=== PATIENT | male | born 1955 | race Caucasian/White ===

== ENCOUNTER 2020-11-08 11:18 | Outpatient (REF) | payer MEDICARE, MEDICAID, SELFPAY ==
[2020-11-08 14:30] LABS: Alanine Aminotransferase 18 U/L (0-40); Albumin Level 4.2 g/dL (3.5-5.0); Alkaline Phosphatase 48 U/L (39-117); Anion Gap 11 (12-20); Aspartate Amino Transferase 16 U/L (5-37); Bilirubin Total 0.3 mg/dL (0.0-1.0); Blood Urea Nitrogen 23 mg/dL (9-16); Calcium 8.5 mg/dL (8.4-10.2); Carbon Dioxide 28 mmol/L (22-29); Chloride 107 mmol/L (96-108); Cholesterol 182 mg/dL; Estimated Glomerular Filt Rate 43; Glucose Fasting 122 mg/dL (60-99); HDL Cholesterol 56 mg/dL; LDL Cholesterol Calculated 111 mg/dl; Potassium 4.9 mmol/l (3.3-5.1); Sodium 141 mmol/L (135-145); Total Protein 6.3 g/dL (6.5-8.0); Triglycerides 78 mg/dL
[2020-11-08 14:54] LABS: Prostate Specific Antigen Scr 0.47 ng/mL (<0.05-4.0); TSH reflex Free T4 0.77 mIU/mL (0.32-4.0)
== END 2020-11-08 11:19 | disposition home or self-care (01) ==
LOC: HO.HMGCLDS 11:18
PROVIDERS: PCP Nurse Practitioner Family; Visit Provider Nurse Practitioner Family
DX: I10 Essential (primary) hypertension (principal); Z12.5 Encounter for screening for malignant neoplasm of prostate
CPT/HCPCS: 80053; 80061; 84153; 84443

== ENCOUNTER → 2020-11-14 15:23 | Outpatient (BNVA) | payer MEDICARE, MEDICAID, SELFPAY | PROVIDERS: PCP Nurse Practitioner Family; Visit Provider Nurse Practitioner Family | DX: Z13.89 Encounter for screening for other disorder (principal) | CPT/HCPCS: Q3014 ==

== ENCOUNTER 2020-11-18 10:14 | Outpatient (REF) | payer MEDICARE, MEDICAID, SELFPAY ==
[2020-11-18 11:37] LABS: Alanine Aminotransferase 16 U/L (0-40); Albumin Level 4.7 g/dL (3.5-5.0); Alkaline Phosphatase 53 U/L (39-117); Anion Gap 17 (12-20); Aspartate Amino Transferase 17 U/L (5-37); Bilirubin Total 0.7 mg/dL (0.0-1.0); Blood Urea Nitrogen 22 mg/dL (9-16); Calcium 9.6 mg/dL (8.4-10.2); Carbon Dioxide 26 mmol/L (22-29); Chloride 103 mmol/L (96-108); Estimated Glomerular Filt Rate 40; Glucose Random 124 mg/dL (60-115); Potassium 4.7 mmol/l (3.3-5.1); Sodium 141 mmol/L (135-145); Total Protein 7.2 g/dL (6.5-8.0)
== END 2020-11-18 10:15 | disposition home or self-care (01) ==
LOC: HO.HMGCLDS 10:14
PROVIDERS: PCP Nurse Practitioner Family; Visit Provider Nurse Practitioner Family
DX: R79.89 Other specified abnormal findings of blood chemistry (principal)
CPT/HCPCS: 36415; 80053

== ENCOUNTER 2020-11-22 11:41 | Outpatient (REF) | payer MEDICARE, MEDICAID, SELFPAY ==
[2020-11-22 14:51] LABS: Estimated Glomerular Filt Rate 46
== END 2020-11-22 11:42 | disposition home or self-care (01) ==
LOC: HO.HMGCLDS 11:41
PROVIDERS: PCP Nurse Practitioner Family; Visit Provider Nurse Practitioner Family
DX: R79.89 Other specified abnormal findings of blood chemistry (principal)
CPT/HCPCS: 36415; 82565

== ENCOUNTER 2020-12-23 14:47 | Outpatient (REF) | payer MEDICARE, MEDICAID, SELFPAY ==
--- NOTE | ~2020-12-23 | XR_ITS ---
EXAMINATION: XR RIBS, RIGHT CLINICAL INFORMATION: Localized swelling, mass or lump COMPARISON: Previous chest x-ray February 2016 TECHNIQUE: 3 views of the right ribs and one view of the chest were obtained. FINDINGS: Lungs are clear. No consolidation, pneumothorax, or pleural effusion. The cardiomediastinal silhouette and pulmonary vasculature are normal. No acute fracture or bone lesion is seen. There is evidence of old trauma to the right posterior 11th rib. XR/XR ribs RT min 3V w CXR1V IMPRESSION: Old trauma to the posterior right 11th rib. No evidence for acute disease in the chest or acute rib fracture seen.
[2020-12-23 16:55] LABS: Anion Gap 14 (12-20); Blood Urea Nitrogen 24 mg/dL (9-16); Carbon Dioxide 27 mmol/L (22-29); Chloride 105 mmol/L (96-108); Estimated Glomerular Filt Rate 33; Glucose Random 91 mg/dL (60-115); Sodium 141 mmol/L (135-145)
[2020-12-23 17:08] LABS: Creatinine Urine 123.19 mg/dL; Microalbumin Urine < 5.0 mg/L
[2020-12-24 08:15] LABS: Estimated Average Glucose 114 mg/dL; Hemoglobin A1c % 5.6 %
== END 2020-12-23 14:48 | disposition home or self-care (01) ==
LOC: HO.HMGCLDS 14:47
PROVIDERS: PCP Nurse Practitioner Family; Visit Provider Internal Medicine
DX: R22.2 Localized swelling, mass and lump, trunk (principal); R73.01 Impaired fasting glucose; R79.89 Other specified abnormal findings of blood chemistry
CPT/HCPCS: 36415; 71101; 80048; 82043; 83036

== ENCOUNTER 2021-01-02 14:14 | Outpatient (REF) | payer MEDICARE, MEDICAID, SELFPAY ==
--- NOTE | ~2021-01-02 | XR_ITS ---
EXAMINATION: XR WRIST, RIGHT CLINICAL INFORMATION: Pain right wrist COMPARISON: None TECHNIQUE: Right wrist is imaged in 3 views. FINDINGS: There is no fracture or dislocation or destructive process. The ulnar variance is neutral in the pronator quadratus fat. Appears normal. There is mild narrowing proximal radial carpal compartment along with chondrocalcinosis involving the triangular fibrocartilage with benign bulky calcification medial side measuring 3 x 5 mm. There are cystic changes in the distal ulnar without expansion or matrix mineralization, possibly geode or enchondroma. Cortex appears intact. There is no periostitis. There are prominent degenerative changes risk of a joint with marked narrowing and subchondral sclerosis and spurring. No visible erosive change. There are mild degenerative changes first carpometacarpal joint. The MCP joints show no narrowing or erosive change. There is some mild spurring medial base second and third finger proximal phalanx and spurring base third and fourth metacarpal heads. XR/XR wrist RT min 3V IMPRESSION: 1. Narrowing radial carpal compartment with chondrocalcinosis triangular fibrocartilage and prominent degenerative arthropathy triscaphe joint. 2. Cystic changes distal ulnar without expansion or matrix mineralization, possibly geode or enchondroma. 3. No fracture or dislocation.
== END 2021-01-02 14:15 | disposition home or self-care (01) ==
LOC: HO.HMGCX 14:14
PROVIDERS: PCP Nurse Practitioner Family; Visit Provider Hospitalist
DX: M25.531 Pain in right wrist (principal)
CPT/HCPCS: 73110

== ENCOUNTER → 2021-03-02 13:18 | Outpatient (BNVA) | payer OTHER, SELFPAY | PROVIDERS: PCP Nurse Practitioner Family; Visit Provider Nurse Practitioner Family | DX: Z12.11 Encounter for screening for malignant neoplasm of colon (principal) | CPT/HCPCS: Q3014 ==

== ENCOUNTER 2021-06-21 13:21 | Outpatient (REF) | payer OTHER, SELFPAY ==
[2021-06-21 14:37] LABS: Hematocrit 36.7 % (42-52); Mean Corpuscular HGB Conc 32.7 g/dl (31.0-36.0); Mean Corpuscular Hemoglobin 31.8 pg (27.0-33.0); Mean Corpuscular Volume 97.3 fL (80-98); Mean Platelet Volume 10.6 fL (9.4-12.4); Platelet Count 185 X10*3/uL (160-400); Red Blood Count 3.77 X10*6/uL (4.60-5.80); Red Cell Distribution Width 13.5 % (11.0-16.0); White Blood Count 5.8 X10*3/uL (4.8-10.8)
[2021-06-21 15:05] LABS: Alanine Aminotransferase 48 U/L (0-40); Albumin Level 4.2 g/dL (3.5-5.0); Alkaline Phosphatase 60 U/L (39-117); Anion Gap 12 (12-20); Aspartate Amino Transferase 41 U/L (5-37); Bilirubin Total 0.3 mg/dL (0.0-1.0); Blood Urea Nitrogen 34 mg/dL (9-16); Calcium 9.1 mg/dL (8.4-10.2); Carbon Dioxide 23 mmol/L (22-29); Chloride 111 mmol/L (96-108); Estimated Glomerular Filt Rate 30; Glucose Random 105 mg/dL (60-115); Potassium 5.1 mmol/L (3.3-5.1); Sodium 141 mmol/L (135-145); Total Protein 6.3 g/dL (6.5-8.0)
== END 2021-06-21 13:22 | disposition home or self-care (01) ==
LOC: HO.LAB 13:21
PROVIDERS: PCP Nurse Practitioner Family; Visit Provider Nurse Practitioner Family
DX: Z12.11 Encounter for screening for malignant neoplasm of colon (principal); F17.210 Nicotine dependence, cigarettes, uncomplicated
CPT/HCPCS: 36415; 80053; 85027; 99212

== ENCOUNTER 2021-08-17 10:47 | Outpatient (REF) | payer OTHER, SELFPAY ==
[2021-08-17 14:16] LABS: Alanine Aminotransferase 30 U/L (0-40); Albumin Level 4.3 g/dL (3.5-5.0); Alkaline Phosphatase 72 U/L (39-117); Anion Gap 13 (12-20); Aspartate Amino Transferase 21 U/L (5-37); Bilirubin Total 0.3 mg/dL (0.0-1.0); Blood Urea Nitrogen 17 mg/dL (9-16); Calcium 9.3 mg/dL (8.4-10.2); Carbon Dioxide 25 mmol/L (22-29); Chloride 106 mmol/L (96-108); Cholesterol 177 mg/dL; Estimated Glomerular Filt Rate 39; Glucose Fasting 119 mg/dL (60-99); HDL Cholesterol 75 mg/dL; LDL Cholesterol Calculated 84 mg/dl; Potassium 4.4 mmol/L (3.3-5.1); Sodium 140 mmol/L (135-145); Total Protein 6.5 g/dL (6.5-8.0); Triglycerides 94 mg/dL
[2021-08-17 14:20] LABS: Appearance Urine CLEAR; Color Urine YELLOW; Glucose Urine UA NEG (NEG); Leukocyte Esterase Urine NEG (NEG); Nitrite Urine NEG (NEG); Specific Gravity - Urine >= 1.030 (1.005-1.025); Urine Blood NEG (NEG); Urine Ketones NEG (NEG); Urine Protein NEG (NEG-TRACE)
[2021-08-17 14:37] LABS: Prostate Specific Antigen Scr 0.69 ng/mL (<0.05-4.0); TSH reflex Free T4 1.06 uIU/mL (0.32-4.0)
== END 2021-08-17 10:48 | disposition home or self-care (01) ==
LOC: HO.HMGCLDS 10:47
PROVIDERS: PCP Nurse Practitioner Family; Visit Provider Nurse Practitioner Family
DX: Z12.5 Encounter for screening for malignant neoplasm of prostate (principal); R79.89 Other specified abnormal findings of blood chemistry; I10 Essential (primary) hypertension
CPT/HCPCS: 36415; 80053; 80061; 81003; 84153; 84443

== ENCOUNTER 2021-08-24 10:25 | Day surgery (SDC) | payer OTHER, SELFPAY ==
[2021-08-17 11:33] VITALS: BMI 24.3
--- NOTE | 2021-08-23 09:06 | HO.ANESPROP2 ---
Documented by User: Ledy Ying NP 08/23/21 09:07 HPI - Anesthesia Eval Consult details Narrative: 65yo M for Colonoscopy PMFSH Active Problems Active Problems: All Active Problems (Updated 08/17/21 @ 11:41 by Rosemary Monteiro RN) Screening for colon cancer (Acute) Penile lesion (Acute) Elevated serum creatinine (Acute) Lump in chest (Acute) Elevated fasting blood sugar (Acute) Right wrist pain (Acute) Elevated serum creatinine (Acute) Screening PSA (prostate specific antigen) (Acute) HTN (hypertension) (Acute) Past Medical History Medical History CKD (chronic kidney disease) COVID-19 vaccine series completed HTN (hypertension) Hx MRSA infection Primary osteoarthritis of both hips Family History Family History Father Brain tumor Mother HTN (hypertension) COPD (chronic obstructive pulmonary disease) Diabetes mellitus Maternal Grandfather No problems noted. Maternal Grandmother No problems noted. Paternal Grandfather No problems noted. Paternal Grandmother No problems noted. Surgical History Surgical History History of back surgery History of back surgery History of back surgery Social History Social History Household Members Other:: sister Housing: House Are you a primary residential child care counselor to a significant other at home: No Do you presently have visiting nurse or other home services: No Alcohol intake: current Alcohol intake frequency: a few times a week Patient Tobacco Use Status: Current everyday Tobacco user Tobacco use type: Cigarette Cigarettes Per Day: 3 Years Smoked: 15 e-Cigarette/Vaping Use: Never Used Second Hand Smoke Exposure: No Use of substances other than those prescribed or required for medical reasons: Yes Substance Use Type Other:: 3-4 times/week Are you DNR?: No Advance Directives Information Provided: Yes (informational brochure mailed) Advance Directives on File: No Recently lost weight without trying: No Eating poorly because of decreased appetite: No Nutrition Risks: No Nutritional Risk Poor oral hygiene: No (has had dental extractions) Current occupational status: retired Meds Allergies Allergy/AdvReac Type Severity Reaction Status Date / Time tizanidine AdvReac Unknown Nightmares Verified 08/02/21 17:06 Exam Exam Date and Time: August 23, [id number] Height,Weight and Vital Signs: Height 5 ft 10 in Weight 77.111 kg Pertinent Lab Results Pertinent Lab Results: Laboratory Tests 06/21/21 08/17/21 14:20 10:52 WBC 5.8 Hgb 12.0 L Hct 36.7 L Plt Count 185 Sodium 140 Potassium 4.4 Chloride 106 Carbon Dioxide 25 BUN 17 H Creatinine 1.78 H Assessment and Plan Assessment Anesthesia Assessment: Chart Reviewed Documented by User: Kayla Huerta MD 08/24/21 10:46 PMFSH Past Medical History Medical History CKD (chronic kidney disease) COVID-19 vaccine series completed HTN (hypertension) Hx MRSA infection Primary osteoarthritis of both hips Functional capacity: independent ambulation Family History Family History Father Brain tumor Mother HTN (hypertension) COPD (chronic obstructive pulmonary disease) Diabetes mellitus Maternal Grandfather No problems noted. Maternal Grandmother No problems noted. Paternal Grandfather No problems noted. Paternal Grandmother No problems noted. Family history of problems with anesthesia: No Surgical History Surgical History History of back surgery History of back surgery History of back surgery History of Problems with Anesthesia: No Social History Social History Household Members Other:: sister Housing: House Are you a primary residential child care counselor to a significant other at home: No Do you presently have visiting nurse or other home services: No Alcohol intake: current Alcohol intake frequency: a few times a week Patient Tobacco Use Status: Current everyday Tobacco user Tobacco use type: Cigarette Cigarettes Per Day: 3 Years Smoked: 15 e-Cigarette/Vaping Use: Never Used Second Hand Smoke Exposure: No Use of substances other than those prescribed or required for medical reasons: Yes Substance Use Type Other:: 3-4 times/week Are you DNR?: No Advance Directives Information Provided: Yes (informational brochure mailed) Advance Directives on File: No Recently lost weight without trying: No Eating poorly because of decreased appetite: No Nutrition Risks: No Nutritional Risk Poor oral hygiene: No (has had dental extractions) Current occupational status: retired Meds Allergies Allergy/AdvReac Type Severity Reaction Status Date / Time tizanidine AdvReac Unknown Nightmares Verified 08/02/21 17:06 Exam Airway Mallampati Class: II TM Dist: >3cm Denture: Upper and Lower Heart: RRR Lungs: CTA Assessment and Plan Final Anesthetic Review Family History of Problems with Anesthesia: No History of Problems with Anesthesia: No
[2021-08-24 10:33] VITALS: BP 176/74; PULSE 86; RESP 16; TEMP 36.4; O2SAT 95
[2021-08-24] MEDS: Lactated Ringers 1,000 ML 100 ML IVCONT (10:40)
--- NOTE | 2021-08-24 10:45 | MHC.SHP ---
Pre-Procedural Eval Section A Date of Service: 08/24/21 Section B Chief Complaint: Screening Relevant Family History (Specify if Yes): No Relevant Social History: Tobacco Use Present Medications: see Short Stay Collaborative assessment Medical History: Significant History (CKD (chronic kidney disease) COVID-19 vaccine series completed HTN (hypertension) Hx MRSA infection Primary osteoarthritis of both hips) History of Previous Operations: Relevant previous surgery/procedure and date(s) (History of back surgery) Allergies: Allergies Allergy/AdvReac Type Severity Reaction Status Date / Time tizanidine AdvReac Unknown Nightmares Verified 08/02/21 17:06 Review of Systems Sugical H&P ROS: Negative: Constitution, Cardiovascular, Respiratory, Neurological, Psychiatric, Hem-Onc, Allergic/Immunologic, Gastrointestinal, Genitourinary, Musculoskeletal, Integumentary, Endocrine and Eyes/Ears/Nose/Throat Exam Surgical H&P Exam: Normal: HEENT, Normal: Heart, Normal: Lungs, Normal: Extremities, Normal: Abdomen, Normal: Skin and Normal: Neurological Plan Diagnosis/Plan: Unchanged I have reviewed the history and physical and performed a pertinent physical examination on my patient. No changes have occurred unless specified.
--- NOTE | 2021-08-24 11:32 | PM.OP ---
Brief Operative Note Date of Service: 08/24/21 Pre-op diagnosis: colon screening Post-op diagnosis: same Procedure: see op note Surgeon: Bello Hernández MD Anesthesia: MAC Was an Building And Construction Manager used for this Procedure?: No Estimated blood loss (mL): 0 Condition: stable Disposition: PACU
--- NOTE | 2021-08-24 11:32 | W.PM.OPN ---
Operative Note Operative Note Date of Service: 08/24/21 Narrative: Operative Information Procedure Description: Colonoscopy COLONOSCOPY Instrument: Olympus variable stiffness pediatric scope 190L Colonoscopy Monitoring: Vital signs and clinical assessment, continuous EKG monitoring, Pulse oximetry, Carbon Dioxide monitoring and blood pressure monitoring were done throughout the procedure. Colon withdrawal time was 13 minutes. Procedure: The patient was placed in the left lateral decubitis position and pre-procedure medications were administered. After a digital rectal examination of the ano-rectum, the video colonoscope was inserted into the rectum and advanced through the colon to the cecum/TI. The colonoscope was slowly withdrawn in a retrograde panoramic fashion and the colon mucosa was carefully examined including a retroflexed view of the rectum. Findings and interventions are described below. Procedure Difficulty: easy Findings: Terminal Ileum-normal Cecum: 8-9 mm sessile polyp removed with cold snare Ascending Colon: 8-9 mm sessile polyp removed with cold snare Transverse Colon -normal Descending Colon:normal Sigmoid Colon: normal Rectum: Retroflexion with small internal hemorrhoids, grade I Anorectum - normal Colon preparation: Fombell Bowel Preparation Scale Right colon; 1 Transverse colon: 1 Left colon; 1 (0 = Unprepared colon segment with mucosa not seen due to solid stool that cannot be cleared. 1 = Portion of mucosa of the colon segment seen, but other areas of the colon segment not well seen due to staining, residual stool and/or opaque liquid. 2 = Minor amount of residual staining, small fragments of stool and/or opaque liquid, but mucosa of colon segment seen well. 3 = Entire mucosa of colon segment seen well with no residual staining, small fragments of stool or opaque liquid) Impression and Post Procedure Diagnosis: poor prep internal hemorrhoids polyps Plan: High fiber diet leaflet Avoid straining at stool, epsom salts and sitz bath, anusol supps or cream Repeat Colonoscopy in 6-12 months and review prep instructions again Above findings were reviewed with the patient and relevant handouts were provided if indicated.
[2021-08-24 11:39] VITALS: BP 128/73; PULSE 75; RESP 16; TEMP 37.4; O2SAT 100
--- NOTE | 2021-08-24 11:44 | HO.POSTANES ---
Post Anesthesia Evaluation Post Anesthesia Evaluation Vital Signs: Vital Signs Temp Pulse Resp BP Pulse Ox 08/24/21 11:39 99.4 F 75 16 128/73 100 08/24/21 10:33 97.5 F 86 16 176/74 H 95 Anesthesia: Monitored Mental Status: Awake Nausea/Vomiting: None Hydration: Adequate Anesthesia-Related Issues: No Anes. Related Issues
[2021-08-24 11:54] VITALS: BP 142/72; PULSE 69; RESP 20; TEMP 37.5; O2SAT 97
== END 2021-08-24 13:03 | disposition home or self-care (01) ==
PROVIDERS: PCP Nurse Practitioner Family; Visit Provider Internal Medicine Gastroenterology
PROC: 0DJD8ZZ Inspection of Lower Intestinal Tract, Via Natural or Artificial Opening Endoscopic (ICD-10-PCS; CPT 45378; principal; 2021-08-24 12:30)
DX: Z12.11 Encounter for screening for malignant neoplasm of colon (principal); D12.0 Benign neoplasm of cecum; D12.2 Benign neoplasm of ascending colon; K64.0 First degree hemorrhoids; I12.9 Hypertensive chronic kidney disease with stage 1 through stage 4 chronic kidney disease, or unspecified chronic kidney disease; N18.9 Chronic kidney disease, unspecified; F17.210 Nicotine dependence, cigarettes, uncomplicated; Z79.899 Other long term (current) drug therapy; Z86.14 Personal history of Methicillin resistant Staphylococcus aureus infection; Z88.8 Allergy status to other drugs, medicaments and biological substances
CPT/HCPCS: 45385; 88305

== ENCOUNTER 2023-07-26 19:04 | Emergency (ER) | payer MEDICARE, SELFPAY ==
[2023-07-26] VITALS (7 sets, daily range): BP systolic 110–144; BP diastolic 53–79; PULSE 65–85; RESP 15–16; TEMP 36.5–36.9; O2SAT 92–95; BMI 24.1
--- NOTE | 2023-07-26 | ECG_ITS ---
Test Reason : DIZZINESS Blood Pressure : / mmHG Vent. Rate : 078 BPM Atrial Rate : 078 BPM P-R Int : 158 ms QRS Dur : 082 ms QT Int : 388 ms P-R-T Axes : 066 024 047 degrees QTc Int : 442 ms Normal sinus rhythm Possible Anteroseptal infarct , age undetermined Abnormal ECG When compared with ECG of 22-FEB-2016 08:18, Premature ventricular complexes are no longer Present Vent. rate has decreased BY 41 BPM Borderline criteria for Anteroseptal infarct are now Present Referred By: Generic ED Physician Electronically Signed By:BRAYDON SHARMA
--- NOTE | ~2023-07-26 | CT_ITS ---
EXAMINATION: CT HEAD WITHOUT CONTRAST CLINICAL INFORMATION: Mental status changes. COMPARISON: CT head from 02/22/2016. TECHNIQUE: Contiguous axial imaging was performed from the skull base to vertex without intravenous administration of contrast. This CT examination was performed using dose optimization techniques as appropriate, variously including the following: *Automated exposure control. *Adjustment of mA and/or kV according to patient size (this includes techniques or standardized protocols for targeted exams where dose is matched to indication/reason for exam; i.e. extremities or head). *Use of iterative reconstruction technique. DLP: 694 mGy-cm FINDINGS: There is no evidence of acute intracranial hemorrhage or edematous territorial infarction. Castro-white matter differentiation is preserved. A few foci of hypoattenuation in the periventricular and deep white matter are consistent with mild microangiopathy. The ventricles are normal in morphology and size. No evidence for obstructive hydrocephalus. No abnormal mass effect or midline shift. No extra-axial fluid collections. Calcific atherosclerotic disease of the intracranial internal carotid arteries. No hyperdense vessel sign. No acute soft tissue or osseous abnormalities. Mild mucosal thickening of the paranasal sinuses. The mastoid air cells and middle ear cavities are clear. Extensive odontogenic enamel erosions and periapical lucencies. CT/CT head/brain wo IV con IMPRESSION: 1. No evidence of acute intracranial hemorrhage or edematous territorial infarction. 2. Mild underlying microangiopathy. 3. Extensive odontogenic disease.
--- NOTE | ~2023-07-26 | XR_ITS ---
EXAMINATION: XR CHEST CLINICAL INFORMATION: Cough. COMPARISON: Chest radiographs dated 12/23/2020 and 02/22/2016. TECHNIQUE: Frontal and lateral views of the chest were obtained. FINDINGS: The heart, great vessels, pulmonary vasculature and mediastinum are normal. The lungs show no focal infiltrate, effusion or pneumothorax. There is no acute osseous abnormality. XR/XR chest 2V IMPRESSION: No active cardiopulmonary disease.
--- NOTE | 2023-07-26 19:52 | ED_ITS ---
HPI - Altered Mental Status General Chief Complaint: Altered Mental Status Stated Complaint: AMS Time Seen by Provider: 07/26/23 19:50 Source: patient, family (sister; at bedside) and RN notes reviewed Limitations: altered mental status History of Present Illness HPI narrative: 67-year-old male who has a history of hypertension currently on lisinopril however non compliant, history of CKD, presents by EMS for mental status changes. Some history is obtained from the patient, however additional information is provided by the sister was at the bedside. Patient states today that while he was fishing, he fell lightheaded and dizzy, like he was spinning. There was no syncope. Patient reports that he felt confused and was diaphoretic. According to the sister, she reports that the patient has been having several episodes of this over the past several days. She has seen him periodically over the past 3-4 days and he has experienced similar symptoms. Last known well time was approximately 4 days ago. Onset of symptoms was 3-4 days ago. There was no syncope. He denies any associated chest pain or shortness of breath. Sister also reports that he had been confused, and not acting appropriately. Patient resisted denying trauma. Currently the patient has no physical complaints. He denies any fevers chills nausea vomiting. No sick contacts. Related Data Previous Rx's Medication Instructions Recorded amlodipine 5 mg tablet 5 mg PO DAILY #90 tabs 07/05/22 lisinopril 20 mg tablet 20 mg PO DAILY 90 days #90 tabs 03/07/23 Allergies Allergy/AdvReac Type Severity Reaction Status Date / Time tizanidine AdvReac Unknown Nightmares Verified 07/26/23 19:31 Review of Systems 2 Review of Systems: Constitutional: No Weight loss, No Fever, No Chills, No Night Sweats, No Fatigue, No Malaise ENT/Mouth: No Ear Pain, No Nasal Congestion, No sore throat, No Rhinorrhea, No Swallowing Difficulty Eyes: No Eye Pain, No Swelling, No Redness, No Foreign Body, No Discharge, No Vision Changes Cardiovascular: No Chest Pain, No SOB, No Edema, No Palpitations Respiratory: No Cough, No Sputum, No Dyspnea Gastrointestinal: No Nausea, No Vomiting, No Diarrhea, No Constipation, No Abdominal pain Genitourinary: No irregular bleeding, No Dysuria, No Hematuria, No Flank Pain Musculoskeletal: No joint pain, No Myalgias, No Joint Swelling Skin: No Skin Lesions, No rash Neuro: + Weakness, No Numbness, No Paresthesias, No Loss of Consciousness, + Dizziness, No Headache, + mental status changes [facility] Past Medical History Attestation statement: The following information was validated with the patient. Medical History CKD (chronic kidney disease) COVID-19 vaccine series completed HTN (hypertension) Hx MRSA infection Primary osteoarthritis of both hips Surgical History History of back surgery History of back surgery History of back surgery Family History Family History Father Brain tumor Mother HTN (hypertension) COPD (chronic obstructive pulmonary disease) Diabetes mellitus Maternal Grandfather No problems noted. Maternal Grandmother No problems noted. Paternal Grandfather No problems noted. Paternal Grandmother No problems noted. Social History Social History Household Members Other:: sister Housing: House Are you a primary managed care coordinator to a significant other at home: No Do you presently have visiting nurse or other home services: No Alcohol intake: current Alcohol intake frequency: 3 or more drinks per day Alcohol type: beer Patient Tobacco Use Status: Current everyday Tobacco user Tobacco use type: Cigarette Cigarettes Per Day: 3 Years Smoked: 15 Smoked in Last 30 Days: Yes e-Cigarette/Vaping Use: Never Used Second Hand Smoke Exposure: No Use of substances other than those prescribed or required for medical reasons: Yes Substance Use Type: Marijuana Advance Directives: No Advance Directives Information Provided: No Current occupational status: retired Physical Exam ED Vital Signs: Vital Signs - 24 hr 07/26/23 19:38 07/26/23 20:36 07/26/23 20:38 Temperature 98 F 97.7 F Pulse Rate 85 70 65 Respiratory Rate 15 16 Blood Pressure 129/69 110/70 111/63 Pulse Oximetry 94 92 Oxygen Delivery Method Room Air Room Air 07/26/23 20:39 07/26/23 20:42 07/26/23 22:12 Temperature 98.5 F Pulse Rate 71 82 70 Respiratory Rate 16 Blood Pressure 115/55 L 111/53 L 144/67 H Pulse Oximetry 95 Oxygen Delivery Method Room Air BMI result Body Mass Index 24.1 Const General: cooperative and no acute distress Orientation/consciousness: oriented to person, oriented to place and No oriented to time Limitations: altered mental status HENMT Other: Pupils are equal round and reactive to light. Extraocular movements are intact. No visual field deficits. No nystagmus. Resp Effort & Inspection: normal respiratory effort, able to speak in complete sentences, no audible wheezes and no cough Auscultation: clear to auscultation bilaterally Cardio Jugular venous distension: no JVD Rate: regular rate Rhythm: regular rhythm GI Palpation (GI): Soft to palpation and nontender Neuro General: oriented to person, oriented to place and No oriented to time Cranial nerves: Yes CN's II-XII intact bilaterally Psych Attitude: cooperative NIH Stroke Scale Internal: Initial- Upon Arrival Time: 20:10 Level of Consciousness: Alert Level of Consciousness Questions: Answers both questions correctly Level of Consciousness Commands: Performs both tasks correctly Best Gaze: Normal Visual: No visual loss Facial Palsy: Normal Motor Arm (Right): No drift Motor Arm (Left): No drift Motor Leg (Right): No drift Motor Leg (Left): No drift Limb Ataxia: Absent Sensory: Normal Best Language: No aphasia Dysarthia: Normal Extinction and Inattention: No abnormality Score: 0 Course Course Course Narrative: 8:05 p.m., July 26, 2023 no evidence of SIRS, sepsis at this time. No obvious infection. Shortly after stepping out of the room, patient's sister reports while attempting to help the patient find his cell phone in his pocket, she found a small piece of carpet the plastic wrap with a small amount of white substance within it. Patient also had a senior oracle developer and a piece of a plastic straw. This is concerning for substance use and will further evaluate. Reevaluation(s) Reevaluation #1: Reassessment the patient at this time, he is awake alert and CAMPOS x3. Reviewed all labs and imaging with the patient and his sister. Patient confirms that he does smoke marijuana daily and admits to spending time with other individuals that he does not normally hang out with. In addition he thinks some of the marijuana he has been getting from other individuals as well. I had extensive conversation with the patient to discontinue this use. He is in agreement with this. The patient has been ambulatory in the emergency department. He has steady gait there is no orthostasis. Denies any headache or vision changes. Patient feels comfortable with discharge plan home. He denies any underlying dependence is refusing detox. The patient's sister whom he lives with, feels comfortable taking him home and will continue to monitor. Time: 23:08 Medications Administered Discontinued Medications Generic Name Dose Route Start Last Admin Trade Name Emily PRN Reason Stop Dose Admin Sodium Chloride 500 mls @ 500 mls/hr 07/26/23 20:15 07/26/23 22:02 Ns IV 07/26/23 21:14 Infused .Q1H MOISES Infusion Medical Decision Making Medical Decision Making [facility] Narrative: 67-year-old male with history of hypertension and CKD presents for mental status changes, associated diaphoresis. Patient currently denies any physical complaints. Patient's history and symptoms were additional workup, including CVA, TIA verses cardiac, toxic ingestion, or other metabolic abnormality. No focal deficits on exam. Check labs, CT of the brain, UA. ABCD<sup>2</sup> Score for TIA from [email or web address] on 07/26/2023 All calculations should be rechecked by clinician prior to use RESULT SUMMARY: 3 points Per the validation study, 0-3 points: Low Risk 2-Day Stroke Risk: 1.0% 7-Day Stroke Risk: 1.2% 90-Day Stroke Risk: 3.1% INPUTS: Age >=60 years ?> 1 = Yes BP >=140/90 mmHg ?> 0 = No Clinical features of the TIA ?> 0 = Other symptoms Duration of symptoms ?> 2 = >=60 minutes History of diabetes ?> 0 = No Differential Diagnosis Differential Diagnoses: The differential diagnosis associated with the presentation includes CVA TIA Metabolic abnormality Toxic ingestion Sepsis, no evidence of infection at this time, no SIRS UTI Admission/Observation Consideration of admission/observation: Escalation of care including admission/observation considered Consideration for possible admission however since the patient has improved, no acute process on labs and they were all essentially at baseline, and no acute findings on imaging, and no focal deficit, patient will be discharged home. Discussed with Dr. Waterman who agrees with plan. Lab Data [facility] Lab Attestation statement: I reviewed the patient's lab results. 07/26/23 22:00 07/26/23 19:54 Labs: Lab Results 07/26/23 07/26/23 07/26/23 Range/Units 19:54 21:03 22:00 WBC 6.1 (4.8-10.8) X10*3/uL RBC 4.28 L (4.60-5.80) X10*6/uL Hgb 13.5 L (14.0-18.0) g/dl Hct 40.5 L (42.0-52.0) % MCV 94.6 (80.0-98.0) fL MCH 31.5 (27.0-33.0) pg MCHC 33.3 (31.0-36.0) g/dl RDW 13.4 (11.0-16.0) % Plt Count 149 L (160-400) X10*3/uL MPV 10.7 (9.4-12.4) fL Immature Gran % (Auto) 0.3 (0.0-0.4) % Neut % (Auto) 59.4 (45-73) % Lymph % (Auto) 25.7 (20-40) % [place] % (Auto) 10.5 (2-11) % Eos % (Auto) 3.4 (0-4) % Baso % (Auto) 0.7 (0-2) % Lymph # (Auto) 1.6 (1.2-4.9) X10*3/uL [place] # (Auto) 0.6 (0.1-1.2) X10*3/uL Eos # (Auto) 0.2 (0.0-0.4) X10*3/uL Baso # (Auto) 0.0 (0.0-0.2) X10*3/uL Abs Immat Gran (auto) 0.02 (0.00-0.03) X10*3/uL Absolute Neuts (auto) 3.6 (2.0-8.3) x10*3/uL Absolute Nucleated RBC 0.000 (0.0-0.012) X10*3/uL Nucleated RBC % (auto) 0.0 (0.0-0.2) /100WBC Sodium 141 (135-145) mmol/L Potassium 4.7 (3.3-5.1) mmol/L Chloride 106 (96-108) mmol/L Carbon Dioxide 27 (22-29) mmol/L Anion Gap 13 (12-20) BUN 14 (9-16) mg/dL Creatinine 2.15 H (0.5-1.4) mg/dL Estim Creat Clear Calc 35.3 Estimated GFR 31 Random Glucose 110 (60-115) mg/dL Calcium 9.6 (8.4-10.2) mg/dL Total Bilirubin 0.6 (0.0-1.0) mg/dL AST 33 (5-37) U/L ALT 44 H (0-40) U/L Alkaline Phosphatase 131 H (39-117) U/L Ammonia 24 (13-55) umol/L Total Creatine Kinase 157 (38-174) U/L Troponin I High Sens 3.9 (<3.5-35.0) ng/L Total Protein 6.7 (6.5-8.0) g/dL Albumin 4.1 (3.5-5.0) g/dL Urine Opiates Screen (Not Detect) Urine Fentanyl Screen (Not Detect) Ur Barbiturates Screen (Not Detect) Ur Phencyclidine Scrn (Not Detect) Ur Amphetamines Screen (Not Detect) U Benzodiazepines Scrn (Not Detect) Urine Cocaine Screen (Not Detect) U Marijuana (THC) Screen (Not Detect) Ethyl Alcohol < 10 mg/dL 07/26/23 Range/Units 22:15 WBC (4.8-10.8) X10*3/uL RBC (4.60-5.80) X10*6/uL Hgb (14.0-18.0) g/dl Hct (42.0-52.0) % MCV (80.0-98.0) fL MCH (27.0-33.0) pg MCHC (31.0-36.0) g/dl RDW (11.0-16.0) % Plt Count (160-400) X10*3/uL MPV (9.4-12.4) fL Immature Gran % (Auto) (0.0-0.4) % Neut % (Auto) (45-73) % Lymph % (Auto) (20-40) % [place] % (Auto) (2-11) % Eos % (Auto) (0-4) % Baso % (Auto) (0-2) % Lymph # (Auto) (1.2-4.9) X10*3/uL [place] # (Auto) (0.1-1.2) X10*3/uL Eos # (Auto) (0.0-0.4) X10*3/uL Baso # (Auto) (0.0-0.2) X10*3/uL Abs Immat Gran (auto) (0.00-0.03) X10*3/uL Absolute Neuts (auto) (2.0-8.3) x10*3/uL Absolute Nucleated RBC (0.0-0.012) X10*3/uL Nucleated RBC % (auto) (0.0-0.2) /100WBC Sodium (135-145) mmol/L Potassium (3.3-5.1) mmol/L Chloride (96-108) mmol/L Carbon Dioxide (22-29) mmol/L Anion Gap (12-20) BUN (9-16) mg/dL Creatinine (0.5-1.4) mg/dL Estim Creat Clear Calc Estimated GFR Random Glucose (60-115) mg/dL Calcium (8.4-10.2) mg/dL Total Bilirubin (0.0-1.0) mg/dL AST (5-37) U/L ALT (0-40) U/L Alkaline Phosphatase (39-117) U/L Ammonia (13-55) umol/L Total Creatine Kinase (38-174) U/L Troponin I High Sens (<3.5-35.0) ng/L Total Protein (6.5-8.0) g/dL Albumin (3.5-5.0) g/dL Urine Opiates Screen POSITIVE H (Not Detect) Urine Fentanyl Screen POSITIVE H (Not Detect) Ur Barbiturates Screen Not Detected (Not Detect) Ur Phencyclidine Scrn Not Detected (Not Detect) Ur Amphetamines Screen Not Detected (Not Detect) U Benzodiazepines Scrn POSITIVE H (Not Detect) Urine Cocaine Screen POSITIVE H (Not Detect) U Marijuana (THC) Screen POSITIVE H (Not Detect) Ethyl Alcohol mg/dL Independent Interpretation I performed an independent interpretation of an: EKG Interpretation: Sinus rhythm at 78 beats per minute, no acute ischemic changes. Radiology Impression Discussion of test interpretation with radiology: I have reviewed the radiologist's reading. Radiologist Impression: [address] [address] [address] Scan Report Signed Patient: Terell Medley MR#: [id number] : 1955 Acct:[id number] Age/Sex: 67 / M ADM Date: 07/26/23 Loc: HO.ED Attending Dr: Ordering Physician: Gucci Toney Date of Service: 07/26/23 Procedure(s): CT head/brain wo IV con Accession Number(s): [id number] cc: Syd Stevens FINE DINING SERVER-BC; Gucci Toney~ EXAMINATION: CT HEAD WITHOUT CONTRAST CLINICAL INFORMATION: Mental status changes. COMPARISON: CT head from 02/22/2016. TECHNIQUE: Contiguous axial imaging was performed from the skull base to vertex without intravenous administration of contrast. This CT examination was performed using dose optimization techniques as appropriate, variously including the following: *Automated exposure control. *Adjustment of mA and/or kV according to patient size (this includes techniques or standardized protocols for targeted exams where dose is matched to indication/reason for exam; i.e. extremities or head). *Use of iterative reconstruction technique. DLP: 694 mGy-cm FINDINGS: There is no evidence of acute intracranial hemorrhage or edematous territorial infarction. Castro-white matter differentiation is preserved. A few foci of hypoattenuation in the periventricular and deep white matter are consistent with mild microangiopathy. The ventricles are normal in morphology and size. No evidence for obstructive hydrocephalus. No abnormal mass effect or midline shift. No extra-axial fluid collections. Calcific atherosclerotic disease of the intracranial internal carotid arteries. No hyperdense vessel sign. No acute soft tissue or osseous abnormalities. Mild mucosal thickening of the paranasal sinuses. The mastoid air cells and middle ear cavities are clear. Extensive odontogenic enamel erosions and periapical lucencies. CT/CT head/brain wo IV con IMPRESSION: 1. No evidence of acute intracranial hemorrhage or edematous territorial infarction. 2. Mild underlying microangiopathy. 3. Extensive odontogenic disease. Dictated By: Kodi Owens DO Signed By: <Electronically signed by Kodi Owens DO in OV> 07/26/230 DD/ 53 TD/TT: Egg Processing Supervisor: KALI Independent Historian Clinical information obtained from an independent historian. History obtained from or confirmed by: Other (Sister) External Record Review External record reviewed: Outpatient record Chronic Conditions Patient?s care impacted by: Hypertension Discharge Plan Discharge Clinical Impression: Acute alteration in mental status, Polysubstance abuse Patient Disposition: Home, Self-Care Instructions: Polysubstance Abuse (ED) Additional Instructions: Your drug screening test today showed multiple substances in your system. These are likely to have caused your symptoms today. Recommend avoiding all drug use. Follow-up with your primary care provider. Return to the emergency department for further evaluation or if you have any other concerns. Prescriptions: No Action amlodipine 5 mg tablet 5 mg PO DAILY Qty: 90 0RF lisinopril 20 mg tablet 20 mg PO DAILY 90 Days Qty: 90 0RF Interventions: ED Discharge Assessment Last Done: 07/26/23 23:47 Discharge Date/Time: 07/26/23 23:49
[2023-07-26 20:13] LABS: Alanine Aminotransferase 44 U/L (0-40); Albumin Level 4.1 g/dL (3.5-5.0); Alkaline Phosphatase 131 U/L (39-117); Anion Gap 13 (12-20); Aspartate Amino Transferase 33 U/L (5-37); Bilirubin Total 0.6 mg/dL (0.0-1.0); Blood Urea Nitrogen 14 mg/dL (9-16); Calcium 9.6 mg/dL (8.4-10.2); Carbon Dioxide 27 mmol/L (22-29); Chloride 106 mmol/L (96-108); Creatinine Clr Calc Pharmacy 35.3; Estimated Glomerular Filt Rate 31; Glucose Random 110 mg/dL (60-115); Potassium 4.7 mmol/L (3.3-5.1); Sodium 141 mmol/L (135-145); Total Protein 6.7 g/dL (6.5-8.0)
[2023-07-26 20:19] LABS: Troponin-I High Sensitivity 3.9 ng/L (<3.5-35.0)
[2023-07-26] MEDS: 0.9 % Sodium Chloride 500 ML IV (20:29)
[2023-07-26 20:35] LABS: Ethanol < 10 mg/dL
[2023-07-26 21:15] LABS: Ammonia 24 umol/L (13-55)
[2023-07-26 22:04] LABS: MANUAL DIFF FLAG NO
[2023-07-26 22:06] LABS: Basophils Percent Auto 0.7 % (0-2); Eosinophils Absolute Auto 0.2 X10*3/uL (0.0-0.4); Eosinophils Percent Auto 3.4 % (0-4); Hematocrit 40.5 % (42.0-52.0); Hemoglobin 13.5 g/dl (14.0-18.0); Imm Gran Abs Auto 0.02 X10*3/uL (0.00-0.03); Imm Gran Pct Auto 0.3 % (0.0-0.4); Lymphocytes Absolute Auto 1.6 X10*3/uL (1.2-4.9); Lymphocytes Percent Auto 25.7 % (20-40); Mean Corpuscular HGB Conc 33.3 g/dl (31.0-36.0); Mean Corpuscular Hemoglobin 31.5 pg (27.0-33.0); Mean Corpuscular Volume 94.6 fL (80.0-98.0); Mean Platelet Volume 10.7 fL (9.4-12.4); Monocytes Absolute Auto 0.6 X10*3/uL (0.1-1.2); Monocytes Percent Auto 10.5 % (2-11); Neutrophils Absolute Auto 3.6 x10*3/uL (2.0-8.3); Neutrophils Percent Auto 59.4 % (45-73); Platelet Count 149 X10*3/uL (160-400); Red Blood Count 4.28 X10*6/uL (4.60-5.80); Red Cell Distribution Width 13.4 % (11.0-16.0); White Blood Count 6.1 X10*3/uL (4.8-10.8)
[2023-07-26 22:31] LABS: Amphetamine Screen Urine Not Detected (Not Detect); Barbiturates, Urine Not Detected (Not Detect); Benzodiazepines Screen Urine POSITIVE (Not Detect); Cannabinoid Screen Urine POSITIVE (Not Detect); Cocaine Screen Urine POSITIVE (Not Detect); Fentanyl, urine POSITIVE (Not Detect); Opiate Screen Urine POSITIVE (Not Detect); Phencyclidine Screen Urine Not Detected (Not Detect)
== END 2023-07-26 23:49 | disposition home or self-care (01) ==
PROVIDERS: Physician Assistant; Emergency Provider Emergency Medicine Emergency Medical Services; PCP Nurse Practitioner Family
DX: R41.82 Altered mental status, unspecified (principal); F19.10 Other psychoactive substance abuse, uncomplicated; I12.9 Hypertensive chronic kidney disease with stage 1 through stage 4 chronic kidney disease, or unspecified chronic kidney disease; N18.9 Chronic kidney disease, unspecified; F17.210 Nicotine dependence, cigarettes, uncomplicated; F12.90 Cannabis use, unspecified, uncomplicated; R29.700 NIHSS score 0; Z79.899 Other long term (current) drug therapy
CPT/HCPCS: 36415; 70450; 71046; 80053; 80307; 82140; 82550; 84484; 85025; 93005; 96360; 96361; 99284; 99285

== ENCOUNTER 2023-08-07 08:53 | Outpatient (AMB) | payer MEDICARE, SELFPAY ==
--- NOTE | 2023-08-07 08:56 | A.OFFPC_ITS ---
Vital Signs 08/07/23 08:58 Weight 160 lb BP 140/76 H Blood Pressure Location Lt brachial Position Sitting Pulse 82 Pulse Source Pulse Oximeter Pulse Oximetry (%) 94 Oxygen Delivery Method Room Air Intake Visit Reasons: ER follow up Allergies tizanidine Adverse Reaction (Unknown, Verified 08/07/23 08:58) Nightmares Tobacco use date assessed: 08/07/23 Fall risk assessment: No Falls in past year Last assessed Fall Risk: 08/07/23 Dental Screening Dental Screen Date: 08/07/23 Did you have a dental visit in the last 12 months?: No Did you have a dental problem in the last 6 months where you did not have access to dental care?: No Was dental information given to patient?: Patient has dentist HPI ER follow up HPI Details Pt was seen in the ER on 07/26 with AMS. He reports becoming lightheaded, dizzy, and diaphoretic while fishing. Labs showed no signs of sepsis or infection. Head CT showed no acute changes, mild underlying microangiopathy, extensive odontogenic disease. Tox screen was positive for opiates, fentanyl, benzodiazepines, cocaine, and marijuana. Pt believes he was given cocaine that was laced with fentanyl. Encouraged pt to abstain from drug use. Pt reports doing well today. Due for colon screen, will refer to GI. Pt is a smoker, will consider low-dose CT. [facility] Medical History CKD (chronic kidney disease) COVID-19 vaccine series completed HTN (hypertension) Hx MRSA infection Primary osteoarthritis of both hips Surgical History History of back surgery History of back surgery History of back surgery Family History Father Brain tumor Mother HTN (hypertension) COPD (chronic obstructive pulmonary disease) Diabetes mellitus Maternal Grandfather No problems noted. Maternal Grandmother No problems noted. Paternal Grandfather No problems noted. Paternal Grandmother No problems noted. Social History Household Members Other:: sister Housing: House Are you a primary hospice home care coordinator to a significant other at home: No Do you presently have visiting nurse or other home services: No Alcohol intake: current Alcohol intake frequency: 3 or more drinks per day Alcohol type: beer Patient Tobacco Use Status: Current everyday Tobacco user Tobacco use type: Cigarette Cigarettes Per Day: 3 Years Smoked: 15 e-Cigarette/Vaping Use: Never Used Second Hand Smoke Exposure: No Substance Use Type: Marijuana Current occupational status: retired Questionnaire Thrive Questionnaire Date Thrive assessed: 08/02/21 AUDIT C Alcohol Use Questionnaire (AUDIT-C) 1. How often do you have a drink containing alcohol?: Monthly or less 2. How many drinks containing alcohol do you have on a typical day when you are drinking?: 1 or 2 3. How often do you have six or more drinks on one occasion?: Never Total Score: 1 Review of Systems Const Reports as per HPI Physical exam (Primary Care) Vital Signs: Last Vital Signs Pulse 82 08/07/23 08:58 BP 140/76 H 08/07/23 08:58 Pulse Ox 94 08/07/23 08:58 Oxygen Delivery Method Room Air 08/07/23 08:58 Tobacco/Smoking Status: Tobacco use Status Tobacco use date assessed 08/07/23 08/07/23 09:01 Patient Tobacco Use Status Current everyday Tobacco 08/07/23 08:57 Tobacco use type Cigarette 08/07/23 08:57 e-Cigarette/Vaping Use Never Used 08/07/23 08:57 Thrive Assessment: Date of Thrive Assessment Date Thrive assessed 08/02/21 08/07/23 08:57 Const General: cooperative Orientation/consciousness: patient oriented x3 Resp Effort & Inspection: normal respiratory effort Auscultation: clear to auscultation bilaterally and diminished lung sounds Cardio Rate: regular rate Rhythm: regular rhythm Heart sounds: S1 normal heart sound present and S2 normal heart sound present Neuro General: patient oriented x3 Cranial nerves: Yes CN's II-XII intact bilaterally Psych Appearance: grossly normal Mental Status: mental status grossly normal Speech and movement: Normal speech and movement present Affect: normal affect Attitude: cooperative Thought process: Normal thought process present Thought content: Normal thought content present Insight: Good insight present (Psych) Judgement: Good judgement present (Psych) Assessment and Plan Assessment & Plan (1) Drug abuse: Code(s): F19.10 - Other psychoactive substance abuse, uncomplicated Plan: Encouraged to abstain from drug use (2) Screening for colon cancer: Code(s): Z12.11 - Encounter for screening for malignant neoplasm of colon Plan: Referred to GI Plan The patient agreed to the use of a medical records clerk for this encounter. Scribed for BITA Jones by burt [place] scribe, on 08/07/2023 at 09:10 EST. Orders: Referrals Gastroenterology Referral Z12.11 - Encounter for screening for malignant neoplasm of colon Coding Level of Care Code Est Pt Level 3 (51937) Diagnoses Drug abuse F19.10 Screening for colon cancer Z12.11
[2023-08-07 08:58] VITALS: BP 140/76; PULSE 82; O2SAT 94
== END 2023-08-07 09:19 | disposition home or self-care (01) ==
PROVIDERS: PCP Nurse Practitioner Family; Visit Provider Nurse Practitioner Family
DX: F19.10 Other psychoactive substance abuse, uncomplicated (principal); Z12.11 Encounter for screening for malignant neoplasm of colon
CPT/HCPCS: 99213

== ENCOUNTER 2025-01-06 21:50 | Inpatient (IN) | payer MEDICARE, SELFPAY ==
--- NOTE | ~2025-01-06 | XR_ITS ---
CLINICAL HISTORY: cough 1 view chest x-ray. Comparison: CR/SR - XR CHEST 2V - 07/26/23 20:26 EDT Findings: This examination is mildly limited by multiple structures overlying the patient. No focal consolidation identified within the right lung. Minimal left basilar opacities are present. No pneumothorax or pleural effusion. Subtle interstitial opacities within the lungs are not excluded. Heart size normal. Impression: 1. Mildly limited examination related to structures overlying the patient with minimal left basilar opacities which may represent minimal left basilar atelectasis, infiltrates, or artifact related to overlapping structures. Subtle nonspecific interstitial opacities within the lungs are not excluded. This document has been electronically signed by: José Antonio Bernardo MD on 01/06/2025 22:27:57
--- NOTE | ~2025-01-06 | CT_ITS ---
CLINICAL HISTORY: infection CT chest with contrast Comparison: CR - XR CHEST 1V - 01/06/25 21:58 EST Findings: Normal heart,size. No significant pericardial effusion. Coronary artery calcifications and/or coronary artery stents are visualized. No thoracic aorta aneurysm. There are mildly enlarged mediastinal lymph nodes. Reticulonodular densities are identified diffusely throughout the bilateral lungs with minimal patchy right basilar airspace opacities. Mild left lower lobe airspace opacities are also present. No pneumothorax or pleural effusion. Mild intrahepatic biliary dilation present. The common bile duct is dilated. There is also dilation of the main pancreatic duct. The gallbladder is incompletely included on this exam. Mild cortical thinning/scarring present at the superior pole of the left kidney. No hydronephrosis. No acute fractures. Impression: 1. Reticulonodular densities present diffusely throughout the bilateral lungs, consistent with infectious/inflammatory changes of the small airways. There are minimal superimposed right basilar and mild superimposed left lower lobe airspace opacities, most consistent with pneumonia. 2. Mild intrahepatic biliary dilation with dilation of the common bile duct and main pancreatic duct. May consider contrast-enhanced abdomen MRI/MRCP examination for further evaluation as clinically directed. This document has been electronically signed by: José Antonio Bernardo MD on 01/06/2025 23:44:02
--- NOTE | ~2025-01-06 | US_ITS ---
EXAMINATION: US ABDOMEN LIMITED CLINICAL INFORMATION: Dilated CBD.. COMPARISON: None available. TECHNIQUE: Real-time imaging of the right upper quadrant abdominal viscera. FINDINGS: PANCREAS: No peripancreatic fluid collections. Main pancreatic duct measures 5 mm.. LIVER: Liver measures 15 cm. No gross nodular surface. No solid or cystic lesion. Normal echotexture. No gross intrahepatic biliary ductal dilatation. GALLBLADDER: Fluid-filled. No pericholecystic fluid collection or gallbladder wall thickening. COMMON BILE DUCT: 14 mm. RIGHT KIDNEY: 10 cm. No solid or cystic lesion. Normal echotexture. No hydronephrosis. Normal flow on color Doppler interrogation of the renal hilum. FREE FLUID: None. US/US abdomen limited IMPRESSION: Main pancreatic ductal dilatation and dilated common bile duct. Intrinsic lesion versus pancreatic head lesion cannot be entirely excluded. Recommend dedicated IV contrast enhanced MRI versus CT abdomen. No cholelithiasis. No ascites. No hydronephrosis, right kidney. Electronically signed by: Eitan Miller MD 01/07/2025 11:46 AM EST
--- NOTE | 2025-01-06 21:53 | ECG_ITS ---
Test Reason : SOB Blood Pressure : */* mmHG Vent. Rate : 95 BPM Atrial Rate : 95 BPM P-R Int : 134 ms QRS Dur : 80 ms QT Int : 360 ms P-R-T Axes : 79 66 63 degrees QTcB Int : 452 ms Sinus rhythm with occasional Premature ventricular complexes Possible Left atrial enlargement Borderline ECG When compared with ECG of 26-Jul-2023 20:02, Premature ventricular complexes are now Present Borderline criteria for Anteroseptal infarct are no longer Present Referred By: Generic ED Physician Electronically Signed By: Elkin Arguello
[2025-01-06 21:54] VITALS: BP 172/84; PULSE 105; O2SAT 77
[2025-01-06 22:00] VITALS: BP 178/87; PULSE 97; RESP 26; TEMP 37.4; O2SAT 96; BMI 23.0
[2025-01-06 22:17] LABS: MANUAL DIFF FLAG NO
[2025-01-06 22:20] LABS: Basophils Percent Auto 0.4 % (0-2); Eosinophils Absolute Auto 0.1 X10*3/uL (0.0-0.4); Eosinophils Percent Auto 0.7 % (0-4); Hematocrit 43.9 % (42.0-52.0); Hemoglobin 15.1 g/dl (14.0-18.0); Imm Gran Abs Auto 0.14 X10*3/uL (0.00-0.03); Imm Gran Pct Auto 1.3 % (0.0-0.4); Lymphocytes Absolute Auto 0.7 X10*3/uL (1.2-4.9); Lymphocytes Percent Auto 6.5 % (20-40); Mean Corpuscular HGB Conc 34.4 g/dl (31.0-36.0); Mean Corpuscular Hemoglobin 30.8 pg (27.0-33.0); Mean Corpuscular Volume 89.6 fL (80.0-98.0); Mean Platelet Volume 10.6 fL (9.4-12.4); Monocytes Absolute Auto 0.8 X10*3/uL (0.1-1.2); Monocytes Percent Auto 6.9 % (2-11); Neutrophils Absolute Auto 9.3 x10*3/uL (2.0-8.3); Neutrophils Percent Auto 84.2 % (45-73); Platelet Count 161 X10*3/uL (160-400); Red Cell Distribution Width 13.4 % (11.0-16.0)
[2025-01-06 22:40] LABS: Anion Gap 15 (12-20); Blood Urea Nitrogen 46 mg/dL (9-16); Calcium 8.5 mg/dL (8.4-10.2); Carbon Dioxide 26 mmol/L (22-29); Chloride 95 mmol/L (96-108); Estimated Glomerular Filt Rate 46; Glucose Random 105 mg/dL (60-115); Magnesium 2.1 mg/dL (1.6-2.6); Potassium 3.7 mmol/L (3.3-5.1); Sodium 132 mmol/L (135-145)
[2025-01-06] MEDS: Magnesium Sulfate/H2O 2 GM/50 ML PIGGYBACK IV (22:42)
[2025-01-06] MEDS: methylPREDNISolone Sod Succ 125 MG/2 ML VIAL IVPUSH (22:42)
[2025-01-06 22:49] LABS: Troponin-I High Sensitivity 15.8 ng/L (<3.5-35.0)
--- NOTE | 2025-01-06 22:49 | MHC.EDTECH ---
2nd blood culture set delayed due to patient being in CT scan.
--- NOTE | 2025-01-06 22:51 | PC.NURSE ---
ABX / 2nd cultures delay d/t patient currently in CT scan.
[2025-01-06 22:57] LABS: Influenza A PCR POSITIVE (Negative); Influenza B PCR NEGATIVE (Negative); Resp Syncy Virus RNA Qual PCR NEGATIVE (Negative); SARS COV2 PCR INHOUSE NEGATIVE (Negative)
[2025-01-06] MEDS: iohexoL 350 MG/ML 100 ML INFUS..BTL 65 ML IV (22:57)
[2025-01-06 23:02] LABS: B Type Natriuretic Peptide 30 pg/mL (<100)
--- NOTE | 2025-01-06 23:10 | ED_ITS ---
HPI - General Adult General Chief complaint: Dyspnea Stated complaint: cough x7 days, diff breathing Time Seen by Provider: 01/06/25 21:55 Source: patient Limitations: no limitations History of Present Illness ED Provider: Rosemary Díaz PA-C HPI narrative: 69-year-old male with a history of tobacco abuse, likely undiagnosed COPD, hypertension, presents with cough and cold symptoms x3 days. Patient was found to be 77% on room air when EMS arrived. Patient states he has been having a productive cough, worsening shortness of breath with orthopnea. Associated chills, but never took his temperature. Denies unintentional weight gain or new pedal edema. No sick contacts with same symptoms. No GI symptoms. Related Data Previous Rx's ?Medication ?Instructions ?Recorded lisinopril 20 mg tablet 20 mg PO DAILY 90 days #90 tabs 03/07/23 Allergies Allergy/AdvReac Type Severity Reaction Status Date / Time tizanidine AdvReac Unknown Nightmares Verified 01/06/25 22:01 Review of Systems 2 Review of Systems: Yes all other systems are reviewed and are negative Constitutional: Constitutional: Reports chills, Denies fatigue, Reports fever(s) and Reports malaise Cardiovascular: Cardiovascular: Denies chest pain and Reports dyspnea Respiratory: Respiratory: Reports chest congestion, Reports cough, Reports dyspnea and Denies wheezing Gastrointestinal: Gastrointestinal: Denies abdominal pain, Denies diarrhea, Denies nausea and Denies vomiting Endocrine: Endocrine: Denies fatigue Allergic/Immunologic: Allergic/Immunologic: Denies wheezing PMFSH Past Medical History Attestation statement: The following information was validated with the patient. Medical History Hx MRSA infection COVID-19 vaccine series completed CKD (chronic kidney disease) Primary osteoarthritis of both hips HTN (hypertension) Surgical History History of back surgery History of back surgery History of back surgery Family History Family History Father Brain tumor Mother HTN (hypertension) COPD (chronic obstructive pulmonary disease) Diabetes mellitus Maternal Grandfather No problems noted. Maternal Grandmother No problems noted. Paternal Grandfather No problems noted. Paternal Grandmother No problems noted. Social History Social History Household Members Other:: sister Housing: House Are you a primary medicare interviewer to a significant other at home: No Do you presently have visiting nurse or other home services: No Alcohol intake: current Alcohol intake frequency: 3 or more drinks per day Alcohol type: beer Patient Tobacco Use Status: Current everyday Tobacco user Tobacco use type: Cigarette Cigarettes Per Day: 3 Years Smoked: 15 Smoked in Last 30 Days: Yes e-Cigarette/Vaping Use: Never Used Second Hand Smoke Exposure: No Use of substances other than those prescribed or required for medical reasons: Yes Substance Use Type: Crack/Cocaine Substance Use Frequency: Weekly Advance Directives: No Advance Directives Information Provided: No Do you have a plan to hurt others: No Plan Current occupational status: retired Physical Exam ED Vital Signs: Vital Signs - 24 hr 01/06/25 22:00 01/06/25 23:30 01/06/25 23:40 Temperature 99.3 F Pulse Rate 97 82 83 Respiratory Rate 26 H 20 18 Blood Pressure 178/87 H 161/89 H Pulse Oximetry 96 94 Oxygen Delivery Method Nasal Cannula Nasal Cannula Oxygen Flow Rate 3 BMI result Body Mass Index 23.0 Const Other: Alert Orientation/consciousness: patient oriented x3 Resp Other: Tachypneic, poor air movement, faint basilar crackles Cardio Other: Normal peripheral perfusion with trace pedal and Skin Other: Warm dry no rash Neuro General: patient oriented x3, no focal motor deficits and CN's II-XI intact bilaterally Psych Other: Cooperative Course Reevaluation(s) Reevaluation #1: Sepsis identified, the patient was hypoxic , with likely COPD, fevers at home, low-grade temp here, blood cultures and lactic obtained, adding on ceftriaxone and azithromycin. The chest x-ray is not the best read, obtaining a CT of the chest. The patient was not requiring weight based IV fluid per sepsis protocol, he is normotensive. Time: 22:37 Medications Administered Generic Name Dose Route Start Last Admin Trade Name Freq PRN Reason Stop Dose Admin Azithromycin 500 mg 01/07/25 01:00 01/07/25 01:51 Azithromycin 500 Mg Tablet PO 500 mg Q24H MOISES Administration Enoxaparin Sodium 40 mg 01/07/25 01:00 01/07/25 01:51 Enoxaparin Sodium 40 Mg/0.4 Ml Syringe SUBCUT 40 mg Q24H MOISES Administration Discontinued Medications Generic Name Dose Route Start Last Admin Trade Name Emily PRN Reason Stop Dose Admin Albuterol Sulfate 5 mg/ 7.5 mg 01/06/25 23:31 01/06/25 23:36 Albuterol Sulfate 2.5 mg INHALE 01/06/25 23:32 7.5 mg ONCE ONE Administration Ceftriaxone Sodium 2 gm 01/06/25 22:37 01/06/25 23:15 Ceftriaxone Sodium 2 Gm Vial IVPUSH 01/06/25 22:38 2 gm ONCE ONE Administration Magnesium Sulfate 2 gm in 50 mls @ 25 mls/hr 01/06/25 22:34 01/06/25 22:51 Magnesium Sulfate/H2o IV 01/07/25 00:33 Infused ONCE ONE Infusion Iohexol 65 ml 01/06/25 22:57 01/06/25 22:57 Iohexol 350 Mg/Ml 100 Ml Infus..Btl IV 01/06/25 22:58 65 ml ONCE ONE Administration Methylprednisolone Sodium Succinate 125 mg 01/06/25 22:34 01/06/25 22:42 Methylprednisolone Sod Succ 125 Mg/2 Ml Vial IVPUSH 01/06/25 22:35 125 mg ONCE ONE Administration Medical Decision Making Medical Decision Making MDM Narrative: 69-year-old male with a history of tobacco abuse, likely undiagnosed COPD, hypertension, presents with cough and cold symptoms x3 days. Patient was found to be 77% on room air when EMS arrived. Patient states he has been having a productive cough, worsening shortness of breath with orthopnea. Associated chills, but never took his temperature. Denies unintentional weight gain or new pedal edema. No sick contacts with same symptoms. No GI symptoms. Problem: Tobacco abuse hypertension age History: Per patient I have considered the following differential diagnoses: COPD exacerbation, pneumonia, bronchitis, viral syndrome, PE Plan: Sepsis identified, the patient was newly hypoxic, with a likely diagnosis of COPD, low-grade temp. Screening labs including blood cultures and lactic acid and viral panel obtained, chest x-ray needs to be read. I feel that this is a mixed picture, the patient is having symptoms of COPD, and pneumonia, we will be initiating the bronchodilator protocol giving Solu-Medrol, starting empiric antibiotics. Thought about PE due to new hypoxia, however the patient was not overtly tachycardic, he has no chest pain, there was no objective signs or symptoms for DVT on exam, I am deferring a dimer at this time as I do feel an infectious etiology is the more likely cause for his hypoxia. I have independently reviewed the following tests: Labs: Leukocytosis with left shift, not anemic, trop 15.8, BNP 30, no electrolyte abnormalities, influenza a positive EKG: Sinus rhythm with PVCs, no ischemic changes, QTC 452 Chest x-ray:Findings: This examination is mildly limited by multiple structures overlying the patient. No focal consolidation identified within the right lung. Minimal left basilar opacities are present. No pneumothorax or pleural effusion. Subtle interstitial opacities within the lungs are not excluded. Heart size normal. Impression: 1. Mildly limited examination related to structures overlying the patient with minimal left basilar opacities which may represent minimal left basilar atelectasis, infiltrates, or artifact related to overlapping structures. Subtle nonspecific interstitial opacities within the lungs are not excluded. This document has been electronically signed by: José Antonio Bernardo MD on 01/06/2025 22:27:57 CT chest: mpression: 1. Reticulonodular densities present diffusely throughout the bilateral lungs, consistent with infectious/inflammatory changes of the small airways. There are minimal superimposed right basilar and mild superimposed left lower lobe airspace opacities, most consistent with pneumonia. 2. Mild intrahepatic biliary dilation with dilation of the common bile duct and main pancreatic duct. May consider contrast-enhanced abdomen MRI/MRCP examination for further evaluation as clinically directed. This document has been electronically signed by: José Antonio Bernardo MD on 01/06/2025 23:44:02 Lab Data 01/06/25 22:10 01/06/25 22:10 Labs: Lab Results 01/06/25 01/06/25 Range/Units 22:10 23:10 WBC 11.0 H (4.8-10.8) X10*3/uL RBC 4.90 (4.60-5.80) X10*6/uL Hgb 15.1 (14.0-18.0) g/dl Hct 43.9 (42.0-52.0) % MCV 89.6 (80.0-98.0) fL MCH 30.8 (27.0-33.0) pg MCHC 34.4 (31.0-36.0) g/dl RDW 13.4 (11.0-16.0) % Plt Count 161 (160-400) X10*3/uL MPV 10.6 (9.4-12.4) fL Immature Gran % (Auto) 1.3 H (0.0-0.4) % Neut % (Auto) 84.2 H (45-73) % Lymph % (Auto) 6.5 L (20-40) % [place] % (Auto) 6.9 (2-11) % Eos % (Auto) 0.7 (0-4) % Baso % (Auto) 0.4 (0-2) % Lymph # (Auto) 0.7 L (1.2-4.9) X10*3/uL [place] # (Auto) 0.8 (0.1-1.2) X10*3/uL Eos # (Auto) 0.1 (0.0-0.4) X10*3/uL Baso # (Auto) 0.0 (0.0-0.2) X10*3/uL Abs Immat Gran (auto) 0.14 H (0.00-0.03) X10*3/uL Absolute Neuts (auto) 9.3 H (2.0-8.3) x10*3/uL Absolute Nucleated RBC 0.000 (0.0-0.012) X10*3/uL Nucleated RBC % (auto) 0.0 (0.0-0.2) /100WBC Hold Blue Top SEE NOTE Sodium 132 L (135-145) mmol/L Potassium 3.7 (3.3-5.1) mmol/L Chloride 95 L (96-108) mmol/L Carbon Dioxide 26 (22-29) mmol/L Anion Gap 15 (12-20) BUN 46 H (9-16) mg/dL Creatinine 1.53 H (0.5-1.4) mg/dL Estim Creat Clear Calc 48.0 Estimated GFR 46 Random Glucose 105 (60-115) mg/dL Lactic Acid 1.0 (0.5-2.0) mmol/L Calcium 8.5 D (8.4-10.2) mg/dL Magnesium 2.1 (1.6-2.6) mg/dL Troponin I High Sens 15.8 D (<3.5-35.0) ng/L B-Natriuretic Peptide 30 (<100) pg/mL Influenza Type A (PCR) POSITIVE A (Negative) Influenza Type B (PCR) NEGATIVE (Negative) RSV RNA Qual (PCR) NEGATIVE (Negative) SARS-CoV-2 RNA (RT-PCR) NEGATIVE (Negative) Discharge Plan Discharge Clinical Impression: Influenza A, Pneumonia, Hypoxia Patient Disposition: Admitted As Inpatient
--- NOTE | 2025-01-06 23:10 | PC.NURSE ---
assumed care of pt at this time. 2nd set of cultures being drawn at this time.
[2025-01-06] MEDS: cefTRIAXone sodium 2 GM VIAL IVPUSH (23:15)
[2025-01-06 23:30] VITALS: BP 161/89; PULSE 82; RESP 20; O2SAT 94
[2025-01-06] MEDS: Albuterol Sulfate 5 MG, Albuterol Sulfate (0.083%) 2.5 MG 7.5 MG INHALE (23:36)
[2025-01-06 23:40] VITALS: PULSE 83; RESP 18; O2SAT 93
[2025-01-07] VITALS (11 sets, daily range): BP systolic 119–150; BP diastolic 55–81; PULSE 65–99; RESP 14–21; TEMP 36.4–36.9; O2SAT 92–98
--- NOTE | 2025-01-07 00:57 | P.HPHOSP_ITS ---
History of Present Illness Date of Service: 01/07/25 Chief Complaint: Cough, dyspnea This is a 69-year-old male with pertinent history of tobacco use disorder, hypertension, CKD stage 3 not on prescription medications who presents to the emergency department for evaluation of cough and dyspnea. Patient states his symptoms started 1 week prior to presentation. He has been having cough with sputum production and dyspnea which is worse with exertion. Also has been having associated chills. No orthopnea or PND. No sick contacts. Patient was on antihypertensive until many years ago and states his blood pressure has been well controlled and that is why he is off antihypertensive. Does not take any home prescription medications. No history of COPD or asthma. No chest pain, palpitations, abdominal pain, changes in urinary or bowel habits. In the emergency department, imaging concerning for pneumonia and patient tested positive for influenza A. Also requiring supplemental oxygen in the ER Review of Systems 2 Constitutional: Constitutional: Reports fatigue, Reports lethargy, Reports malaise, Reports poor appetite and Reports weakness Cardiovascular: Cardiovascular: Reports no additional cardiovascular complaints and Reports dyspnea on exertion Respiratory: Respiratory: Reports cough and Reports dyspnea on exertion Gastrointestinal: Gastrointestinal: Reports no additional gastrointestinal complaints Neurologic: Reports weakness Endocrine: Endocrine: Reports fatigue [facility] Medical History Hx MRSA infection COVID-19 vaccine series completed CKD (chronic kidney disease) Primary osteoarthritis of both hips HTN (hypertension) Family History Father Brain tumor Mother HTN (hypertension) COPD (chronic obstructive pulmonary disease) Diabetes mellitus Maternal Grandfather No problems noted. Maternal Grandmother No problems noted. Paternal Grandfather No problems noted. Paternal Grandmother No problems noted. Surgical History History of back surgery History of back surgery History of back surgery Social History Household Members Other:: sister Housing: House Are you a primary resident care associate to a significant other at home: No Do you presently have visiting nurse or other home services: No Alcohol intake: current Alcohol intake frequency: 3 or more drinks per day Alcohol type: beer Patient Tobacco Use Status: Current everyday Tobacco user Tobacco use type: Cigarette Cigarettes Per Day: 3 Years Smoked: 15 Smoked in Last 30 Days: Yes e-Cigarette/Vaping Use: Never Used Second Hand Smoke Exposure: No Use of substances other than those prescribed or required for medical reasons: Yes Substance Use Type: Crack/Cocaine Substance Use Frequency: Weekly Advance Directives: No Advance Directives Information Provided: No Do you have a plan to hurt others: No Plan Current occupational status: retired Meds Allergies Allergy/AdvReac Type Severity Reaction Status Date / Time tizanidine AdvReac Unknown Nightmares Verified 01/06/25 22:01 Physical Exam 2 Vital Signs and Narrative: Vital Signs: Last Vital Signs Temp 99.3 F 01/06/25 22:00 Pulse 83 01/06/25 23:40 Resp 18 01/06/25 23:40 BP 161/89 H 01/06/25 23:30 Pulse Ox 94 01/06/25 23:30 O2 Del Method Nasal Cannula 01/06/25 23:30 O2 Flow Rate 3 01/06/25 23:30 Oxygen Flow Rate 5 01/06/25 22:00 BMI result Body Mass Index 23.0 Middle-aged male lying in bed in mild distress on supplemental oxygen Neck supple, no JVD Regular rate and rhythm, S1-S2 heard Bilateral crackles with expiratory wheezing present Abdomen soft nontender, no guarding, no rigidity Patient is awake, alert and oriented to self, place, time and person ; no focal motor deficit Psych: Normal mood No pedal edema Results Labs 01/06/25 22:10 01/06/25 22:10 Labs: Laboratory Results - last 24 hr 01/06/25 01/06/25 22:10 23:10 MCV 89.6 MCH 30.8 MCHC 34.4 RDW 13.4 Plt Count 161 MPV 10.6 Immature Gran % (Auto) 1.3 H Neut % (Auto) 84.2 H Lymph % (Auto) 6.5 L [place] % (Auto) 6.9 Eos % (Auto) 0.7 Baso % (Auto) 0.4 Lymph # (Auto) 0.7 L [place] # (Auto) 0.8 Eos # (Auto) 0.1 Baso # (Auto) 0.0 Abs Immat Gran (auto) 0.14 H Absolute Neuts (auto) 9.3 H Absolute Nucleated RBC 0.000 Nucleated RBC % (auto) 0.0 Hold Blue Top SEE NOTE Anion Gap 15 Estim Creat Clear Calc 48.0 Estimated GFR 46 Random Glucose 105 Lactic Acid 1.0 Calcium 8.5 D Magnesium 2.1 B-Natriuretic Peptide 30 Influenza Type A (PCR) POSITIVE A Influenza Type B (PCR) NEGATIVE RSV RNA Qual (PCR) NEGATIVE SARS-CoV-2 RNA (RT-PCR) NEGATIVE Assessment and Plan (1) Hypoxia: Status: Acute (2) Pneumonia: Status: Acute (3) Influenza A: Status: Acute Plan This is a 69-year-old male with pertinent history of tobacco use disorder, hypertension, chronic kidney disease stage III not on prescription medications who presents to the emergency department for evaluation of cough and dyspnea. #. Acute hypoxemic respiratory failure due to influenza a with superimposed bacterial infection leading to acute bronchitis: Will admit patient with supplemental oxygen. Initiating IV ceftriaxone, azithromycin and Tamiflu. Also ordered scheduled and p.r.n. DuoNebs, systemic steroids. Will need outpatient PFTs #. CKD stage 3: At baseline #. Hypertension: No longer on lisinopril DVT prophylaxis: Lovenox Full code Admit as inpatient and will require two night minimum hospital stay for supplemental oxygen, monitoring of respiratory status, IV antibiotics, systemic steroids (as above), which is not possible in a lesser acute setting. Quality Stroke Does the patient have a stroke diagnosis?: No VTE Prior VTE?: No VTE Risk Level:: Medical - moderate - high VTE Device Contraindication: Treatment Not Indicated VTE Drug Contraindication: N/A - Med Ordered
[2025-01-07] MEDS: Enoxaparin Sodium 40 MG/0.4 ML SYRINGE SUBCUT (01:51)
[2025-01-07] MEDS: Azithromycin 500 MG TABLET PO (01:51)
[2025-01-07] MEDS: Oseltamivir Phosphate 75 MG CAPSULE PO (03:53)
[2025-01-07 04:55] LABS: MANUAL DIFF FLAG NO
[2025-01-07 04:59] LABS: Basophils Percent Auto 0.4 % (0-2); Eosinophils Absolute Auto 0.3 X10*3/uL (0.0-0.4); Eosinophils Percent Auto 3.2 % (0-4); Hematocrit 40.5 % (42.0-52.0); Hemoglobin 13.9 g/dl (14.0-18.0); Imm Gran Abs Auto 0.33 X10*3/uL (0.00-0.03); Imm Gran Pct Auto 3.2 % (0.0-0.4); Lymphocytes Absolute Auto 0.3 X10*3/uL (1.2-4.9); Lymphocytes Percent Auto 3.2 % (20-40); Mean Corpuscular HGB Conc 34.3 g/dl (31.0-36.0); Mean Corpuscular Hemoglobin 30.5 pg (27.0-33.0); Mean Platelet Volume 10.9 fL (9.4-12.4); Monocytes Absolute Auto 0.3 X10*3/uL (0.1-1.2); Monocytes Percent Auto 2.8 % (2-11); Neutrophils Percent Auto 87.2 % (45-73); Platelet Count 144 X10*3/uL (160-400); Red Blood Count 4.55 X10*6/uL (4.60-5.80); Red Cell Distribution Width 13.3 % (11.0-16.0); White Blood Count 10.3 X10*3/uL (4.8-10.8)
[2025-01-07 05:12] LABS: Anion Gap 17 (12-20); Blood Urea Nitrogen 40 mg/dL (9-16); Calcium 8.1 mg/dL (8.4-10.2); Carbon Dioxide 24 mmol/L (22-29); Chloride 97 mmol/L (96-108); Creatinine Clr Calc Pharmacy 54.9; Estimated Glomerular Filt Rate 53; Glucose Random 181 mg/dL (60-115); Potassium 3.5 mmol/L (3.3-5.1); Sodium 134 mmol/L (135-145)
[2025-01-07] MEDS: Albuterol/Iprat 2.5/0.5MG 3 ML AMPUL.NEB INHALE ×4 (07:50→19:56)
[2025-01-07 08:19] LABS: Alanine Aminotransferase 13 U/L (0-40); Alkaline Phosphatase 80 U/L (39-117); Aspartate Amino Transferase 35 U/L (5-37); Bilirubin Direct 0.2 mg/dL (0.0-0.5); Bilirubin Total 0.4 mg/dL (0.0-1.0); Total Protein 6.2 g/dL (6.5-8.0)
--- NOTE | 2025-01-07 09:19 | PHA.MEDREC ---
Addendum entered by [facility] 01/07/25 09:32: MED REC CHECKED BY [facility] Original Note: Pharmacy Consult ? Medication Reconciliation Pharmacy has completed the medication reconciliation. Spoke with patient and he confirmed he is not taking any medications at this time.
[2025-01-07] MEDS: predniSONE 20 MG TABLET 40 MG PO (09:27)
--- NOTE | 2025-01-07 09:42 | PC.NURSE ---
pt is caox4 and resting comfortably. his resps are = and nonlabored with coarse exp in all echols, he speaks in full clear sentences and reorts increase ease of breathing since his arrival. pt is in nsr on the monitor. pt is awairng a bed assignement. pt is able to reposition self in bed and is not a fall risk.
--- NOTE | 2025-01-07 12:12 | MHC.CM.PN ---
PT REPORTS HE LIVES WITH HIS SISTER AND IS INDEPENDENT WITH CARE HE HAS NO DME AND NO SERVICES COPY OF HCP REQUESTED PT HAS NO PCP, BROCHURE PROVIDED IMM DELIVERED DCP: HOME NO SERVICES VIA PRIVATE TRANSPORT
--- NOTE | 2025-01-07 12:51 | PM.EVENT ---
Event Note Date of Service: 01/07/25 Event Note: seen and examined this morning Follow-up for influenza a, pneumonia Acute hypoxemic respiratory failure due to influenza a with superimposed pneumonia continue IV ceftriaxone, change Azithromycin to doxycycline to cover for possible MRSA continue Tamiflu continue scheduled and p.r.n. DuoNebs, systemic steroids blood cultures pending incidental finding of intrahepatic biliary dilation with dilation of the common bile duct and main pancreatic duct no abdominal pain, LFTs normal abdominal ultrasound obtained- main pancreatic duct dilation and dilated CBD. Intrinsic lesion versus pancreatic head lesion can not be entirely excluded. no cholelithiasis, no ascites recommend outpatient contrast enhanced MRI CKD stage 3: At baseline Hypertension: No longer on lisinopril monitor blood pressure closely DVT prophylaxis: Lovenox Time Spent With Patient Time: Total time managing care of this patient today ____ minutes.
[2025-01-07] MEDS: Oseltamivir Phosphate 30 MG CAPSULE PO (13:24)
[2025-01-07] MEDS: Doxycycline Hyclate 100 MG in 0.9 % Sodium Chloride 250 ML 166.67 MG IV ×2 (13:25→21:48)
[2025-01-07] MEDS: 0.9 % Sodium Chloride Flush 3 ML SYRINGE IVFLUSH (15:16)
--- NOTE | 2025-01-07 16:14 | PC.NURSE ---
Summary of care: 69 y.o M A&O x4 independent with ADLs at baseline. Brought in to dept by EMS w/ c/o feeling ill x 3 days-1 week. PT c/o feeling short of breath and was found to have SpO2 in the 70'. Pt improved to 99% on 5L via NC. Labs were obtained, pt found to be (+) for the flu, in addition to PNA on CT. Tamiflu initiated. Lactic acid (-) blood cultures obtained. Pt rec Duoneb updraft, magnesium , doxycycline, medrol,l and rochephin. Pt has 20g IV in R-FA. Today, pt reports his myalgias and shortness of breath have improved since his arrival to dept. Plan is for further evaluation and tx of PNA r/t influenza.
[2025-01-07] MEDS: Morphine Sulfate 2 MG/ML CARTRIDGE IVPUSH (19:57)
[2025-01-07] MEDS: cefTRIAXone sodium 1 GM VIAL IVPUSH (21:47)
--- NOTE | 2025-01-07 22:00 | PC.NURSE ---
medicated per jan, notified SANTOS Harry. urinal emptied and pt repositioned
[2025-01-08] VITALS: BP 136/64; PULSE 59; RESP 18; TEMP 36.7; O2SAT 98
[2025-01-08] MEDS: Enoxaparin Sodium 40 MG/0.4 ML SYRINGE SUBCUT (02:13)
[2025-01-08] MEDS: 0.9 % Sodium Chloride Flush 3 ML SYRINGE IVFLUSH ×2 (02:13→08:01)
[2025-01-08] MEDS: Morphine Sulfate 2 MG/ML CARTRIDGE IVPUSH (02:13)
[2025-01-08] MEDS: Oseltamivir Phosphate 30 MG CAPSULE PO (02:13)
[2025-01-08 07:30] VITALS: O2SAT 84
[2025-01-08 07:53] VITALS: BP 154/80; PULSE 56; RESP 16; TEMP 36.6; O2SAT 99
[2025-01-08] MEDS: Doxycycline Hyclate 100 MG in 0.9 % Sodium Chloride 250 ML 166.67 MG IV (08:00)
[2025-01-08] MEDS: predniSONE 20 MG TABLET 40 MG PO (08:01)
[2025-01-08] MEDS: Albuterol/Iprat 2.5/0.5MG 3 ML AMPUL.NEB INHALE (08:36)
[2025-01-08 08:37] VITALS: PULSE 65; RESP 16; O2SAT 97
[2025-01-08 09:53] VITALS: O2SAT 91
--- NOTE | 2025-01-08 10:53 | MHC.CLN ---
NUTRITION LIBERALIZED DIET FROM CARDIAC TO REGULAR TO PROMOTE PO INTAKE. ADDING ENSURE BID PER CONVERSATION WITH PATIENT. SUPPLEMENT PROVIDES 700 KCALS, 40 G PROTEIN. REPORTS A SERIES OF ILLNESSES CONTRIBUTING TO WEIGHT LOSS, APPROX 10# OVER A YEAR OR MORE. RD TO FOLLOW UP WEEKLY.
--- NOTE | 2025-01-08 11:01 | PM.DS ---
DS: Providers Provider Date of Service: 01/08/25 Date of admission: 01/07/25 01:01 Date of discharge: 01/08/25 Primary care physician: Unknown Physician Attending physician on discharge: Rex Brito Discharging clinician: Grecia Perez DS: Diagnosis Discharge Diagnosis (1) Hypoxia: Status: Acute (2) Pneumonia: Status: Acute (3) Influenza A: Status: Acute DS: Summary Hospital Course Hospital Course: From H&P on the day of admission This is a 69-year-old male with pertinent history of tobacco use disorder, hypertension, CKD stage 3 not on prescription medications who presents to the emergency department for evaluation of cough and dyspnea. Patient states his symptoms started 1 week prior to presentation. He has been having cough with sputum production and dyspnea which is worse with exertion. Also has been having associated chills. No orthopnea or PND. No sick contacts. Patient was on antihypertensive until many years ago and states his blood pressure has been well controlled and that is why he is off antihypertensive. Does not take any home prescription medications. No history of COPD or asthma. No chest pain, palpitations, abdominal pain, changes in urinary or bowel habits. In the emergency department, imaging concerning for pneumonia and patient tested positive for influenza A. Also requiring supplemental oxygen in the ER Acute hypoxemic respiratory failure due to influenza a with superimposed pneumonia Treated with IV ceftriaxone, IV doxycycline, Tamiflu and systemic steroids. Blood cultures have remained negative to date. Patient was able to be weaned off of supplemental oxygen this morning and was able to ambulate without hypoxia or shortness of breath. He reports feeling significantly improved, his cough has improved and he is eager to be discharged home. He will be discharged home to complete course of Tamiflu, antibiotics and oral prednisone. We will send referral to pulmonology due to possible undiagnosed COPD. incidental finding of intrahepatic biliary dilation with dilation of the common bile duct and main pancreatic duct no abdominal pain, LFTs normal. abdominal ultrasound obtained- main pancreatic duct dilation and dilated CBD. Intrinsic lesion versus pancreatic head lesion can not be entirely excluded. no cholelithiasis, no ascites. recommend outpatient contrast enhanced MRI - will refer to GI upon discharge CKD stage 3: At baseline Hypertension: No longer on lisinopril. blood pressure has been stable tobacco dependence - smoking cessation advised. Declined nicotine replacement therapy discussed importance of re-establishing with PCP. patient and his sister are working on scheduling an appointment. Time Attestation Discharge Coordination Time (in mins): 36 Quality: Safe Use of Opioids Does Pt have an Active Cancer Diagnosis on the Problem List?: No Quality: Stroke Does the patient have a stroke diagnosis?: No Physical Exam Vital Signs: Vital Signs: Last Vital Signs Temp 97.8 F 01/08/25 07:53 Pulse 65 01/08/25 08:37 Resp 16 01/08/25 08:37 BP 154/80 H 01/08/25 07:53 Pulse Ox 91 L 01/08/25 09:53 O2 Del Method Room Air 01/08/25 09:53 O2 Flow Rate 4 01/08/25 07:53 Oxygen Flow Rate 5 01/06/25 22:00 BMI result Body Mass Index 23.0 Const: General: cooperative, comfortable, alert, awake and Physically active Orientation/consciousness: patient oriented x3 Resp: Effort & Inspection: normal respiratory effort, able to speak in complete sentences, no respiratory distress and no use of accessory muscles Auscultation: clear to auscultation bilaterally Neuro: General: patient oriented x3 DS: Data Data Completed and Pending Labs on day of discharge: Preliminary micro results at discharge 01/06/25 23:09 Blood Culture - Preliminary Blood - Venous No growth after 24 hours. 01/06/25 22:44 Blood Culture - Preliminary Blood - Venous No growth after 24 hours. Discharge Plan Discharge Anticipated Discharge Date/Time: 01/08/25 11:22 Patient Disposition: Home, Self-Care Discharge Diagnosis: Acute hypoxic respiratory failure due to pneumonia, influenza Referrals: Bello Hernández MD [Physician] - 1 Week (pancreatic duct/CBD dilation) Jamie Cavanaugh MD [Physician] - 1 Week (?undiagnosed COPD) Physician,Unknown J [Primary Care Provider] - 1 Week Discharge Medications: New cefuroxime axetil 500 mg tablet 500 mg PO Q12H 5 Days Qty: 10 0RF doxycycline monohydrate 100 mg tablet 100 mg PO BID 5 Days Qty: 10 0RF prednisone 20 mg tablet 40 mg PO DAILY 4 Days Qty: 8 0RF oseltamivir [Tamiflu] 30 mg capsule 30 mg PO BID Qty: 7 0RF albuterol sulfate [Ventolin HFA] 90 mcg/actuation HFA aerosol inhaler 1 - 2 puff inhalation Q4-6H PRN (Reason: shortness of breath or wheezing) Qty: 6.7 0RF Discharge Orders: Discharge Order (Routine); Ordered 01/08/25 Ordered By: Grecia Perez Activity on Discharge: As tolerated Stand Alone Forms: Patient Portal Discharge page Print Language: Belarusian Care Plan Goals: see below Health Concerns: Acute respiratory failure due to influenza, pneumonia, probable undiagnosed COPD pancreatic duct/CBD dilation Plan of Treatment: Complete course of antibiotics, steroids, Tamiflu as prescribed Recommend smoking cessation Call GI to schedule follow-up appointment for further abdominal imaging Call Pulmonary to schedule follow-up appointment for possible underlying COPD Recommend to reestablish with PCP Assessment: See discharge summary
[2025-01-08 11:53] VITALS: BP 142/73; PULSE 72; RESP 16; TEMP 36.2; O2SAT 92
--- NOTE | 2025-01-08 12:04 | MHC.CM.PN ---
Patient medically cleared for dc home self care via private transport.
== END 2025-01-08 12:13 | disposition home or self-care (01) | DRG 193 ==
LOC: HO.ED 01-07 00:11 → HO.EDOVER 01-07 01:02 → HO.S3 01-08 00:18
PROVIDERS: Physician Assistant Medical; Admitting Provider Student in an Organized Health Care Education/Training Program; Emergency Provider Emergency Medicine; Visit Provider Physician Assistant Medical
DX: J10.00 Influenza due to other identified influenza virus with unspecified type of pneumonia (principal); J96.01 Acute respiratory failure with hypoxia; J44.0 Chronic obstructive pulmonary disease with (acute) lower respiratory infection; I12.9 Hypertensive chronic kidney disease with stage 1 through stage 4 chronic kidney disease, or unspecified chronic kidney disease; N18.30 Chronic kidney disease, stage 3 unspecified; K86.89 Other specified diseases of pancreas; K83.8 Other specified diseases of biliary tract; Z20.822 Contact with and (suspected) exposure to COVID-19; Z86.14 Personal history of Methicillin resistant Staphylococcus aureus infection; Z87.891 Personal history of nicotine dependence; Z79.899 Other long term (current) drug therapy
CPT/HCPCS: 0241U; 36415; 71045; 71260; 76705; 80048; 80076; 83605; 83735; 83880; 84484; 85025; 87040; 93005; 94640; 99285; J0696; J1650; J2270; J2919; J3475; Q9967

== ENCOUNTER → 2025-01-06 21:53 | Outpatient (BNV) | payer MEDICARE, SELFPAY | PROVIDERS: Admitting Provider Student in an Organized Health Care Education/Training Program; Emergency Provider Emergency Medicine; Visit Provider Internal Medicine Cardiovascular Disease | DX: R06.02 Shortness of breath (principal); R94.31 Abnormal electrocardiogram [ECG] [EKG] | CPT/HCPCS: 93010 ==

== ENCOUNTER → 2025-01-06 21:57 | Outpatient (BNV) | payer MEDICARE, SELFPAY | PROVIDERS: Emergency Provider Emergency Medicine; Visit Provider Radiology Diagnostic Radiology | DX: R05.9 Cough, unspecified (principal); R06.09 Other forms of dyspnea | CPT/HCPCS: 71045; 71260 ==

== ENCOUNTER 2025-01-07 01:01 | Outpatient (BNV) | payer MEDICARE, SELFPAY | END 2025-01-07 11:17 | PROVIDERS: Admitting Provider Student in an Organized Health Care Education/Training Program; Emergency Provider Emergency Medicine; Visit Provider Radiology Diagnostic Radiology | DX: K83.9 Disease of biliary tract, unspecified (principal) | CPT/HCPCS: 76705 ==

== ENCOUNTER → 2025-01-07 01:01 | Outpatient (BNV) | payer MEDICARE, SELFPAY | PROVIDERS: Admitting Provider Student in an Organized Health Care Education/Training Program; Emergency Provider Emergency Medicine; Visit Provider Student in an Organized Health Care Education/Training Program | DX: R09.02 Hypoxemia (principal); J18.9 Pneumonia, unspecified organism; J10.1 Influenza due to other identified influenza virus with other respiratory manifestations | CPT/HCPCS: 99223; 99499 ==

== ENCOUNTER 2025-01-20 12:14 | Outpatient (AMB) | payer MEDICARE, SELFPAY ==
--- NOTE | 2025-01-20 12:16 | A.OFFPC_ITS ---
Vital Signs 01/20/25 12:17 Height 5 ft 10 in Weight 147 lb BMI 21.1 BP 138/74 Blood Pressure Location Lt brachial Position Sitting Respiration 18 Pulse 87 Pulse Source Pulse Oximeter Temp 98.9 F Temp Source Oral Pulse Oximetry (%) 96 Oxygen Delivery Method Room Air Intake Visit Reasons: HDF ~ Post hospital discharge FU Intake Note: Pt is here today for a hospital follow up visit after pneumonia. Allergies tizanidine Adverse Reaction (Unknown, Verified 01/20/25 13:13) Nightmares Medication List - Last Reconciled 01/20/25 by Syd Stevens, [facility]- albuterol sulfate 90 mcg/actuation (Ventolin HFA) 1 - 2 puffs inhalation Q4-6H PRN Tobacco use date assessed: 01/20/25 Fall risk assessment: No Falls in past year Last assessed Fall Risk: 01/20/25 Dental Screening Dental Screen Date: 01/20/25 Did you have a dental visit in the last 12 months?: No Did you have a dental problem in the last 6 months where you did not have access to dental care?: No Was dental information given to patient?: Patient declined HPI HDF ~ Post hospital discharge FU HPI Details Chief Complaint Follow-up for recent hospital admission due to respiratory concerns and additional diagnoses. History of Present Illness The patient is a 69-year-old male presenting for a follow-up visit post-hospital discharge related to respiratory issues including hypoxia and dyspnea. Initially, he presented to the emergency department on 01/07/2025 due to persistent shortness of breath and coughing, at which point he was diagnosed with influenza A and bacterial pneumonia. He was treated with intravenous antibiotics and steroids, leading to a substantial improvement in symptoms, and was discharged after being weaned off supplemental oxygen. During his hospital stay, intrahepatic biliary dilatation and dilation of the common bile duct and primary pancreatic duct were identified incidentally, leading to a planned MRI and referral to gastroenterology (already ordered by myself). Despite the notable findings, liver function tests remained normal, and the patient reported no abdominal pain, though does report some weight loss despite good appetite. Relevant medical history includes hypertension and chronic kidney disease stage 3; he has opted out of pharmacological management for hypertension. He is a current smoker, smoking up to 2-3 cigs weekly since age 37, though denies needing his prescribed short-acting beta agonist for ?? COPD, which remains under assessment. No fever, abdominal pain, or recent changes in bowel habits are reported by the patient. Social History - Active smoker since the age of 37, typ ically consuming up to 2-3 cigs per week. - History of substance use. Health Maintenance - Planned MRI to assess biliary and panc reatic ductal dilation. - Referral to gastroenterology for intra hepatic biliary dilation. - Planned Pulmonary Function Testing (PF T). Review of Systems - Respiratory: Denies fever and chills. Reports improved breathing. Denies use of short-acting beta agonists recently (reports it does not do much for him, i dont need it ) - Gastrointestinal: Denies abdominal merlyn n, changes in bowel habits, blood in stool Physical Exam General: Cooperative, healthy appearing, comfortable, no acute distress and well developed, thin stature Orientation: Patient oriented x3 Limitations: No limitations Head: Normal to inspection Ears: Hearing grossly normal bilaterally Nose: Normal external nose present Face and sinus: Normal facial exam Eyes: Appearance normal, both eyes and all related structures Neck: Normal visual inspection and Yes full ROM Respiratory: Diminished but moving air bilaterally Cardiovascular: Regular rate and rhythm. Normal S1 and S2 GI: Normal to inspection. Soft to palpation and nontender Skin: No rashes or lesions noted Neuro: Patient oriented x3 Extremities: Normal to inspection Results - Blood cultures: Negative for bacterial growth. - Liver function tests: Normal. - Past screening: Influenza A positive. - Recent imaging: Incidental finding of intrahepatic biliary dilation and dilation of the common bile duct and main pancreatic duct. Plan Monitoring and assessment through pulmonary function testing and MRI are planned for dealing with COPD and ductal dilation concerns. Active surveillance of hypertension and chronic kidney disease management, with a focus on lifestyle modifications via smoking cessation counseling, is essential. Lab investigations, including CA 19-9 levels, will be conducted, with follow-up scheduled in four months along with fasting labs to ensure coherent tracking of the patient's health status. pt reports stopping smoking completely. Discussion Notes I discussed with the patient the significance of managing his respiratory health, including potential COPD, and the importance of routine surveys such as pulmonary function testing and adherence to specialist referrals for comprehensive evaluation of incidental biliary and pancreatic ductal findings. Given the incidental findings, an MRI and a gastroenterology consult are warranted to rule out potential complications. I advised smoking cessation to support respiratory health and discussed the need for ongoing monitoring of hypertension and CKD. We will re-evaluate in four months and obtain needed fasting labs. The patient was informed of the importance of maintaining regular follow-ups and promptly reporting new symptoms. Patient Instructions - Schedule and complete pulmonary functi on tests as advised. - Attend gastroenterology consultation f ollowing MRI. - Continue monitoring for symptoms like hypoxia or shortness of breath, and report if they reappear. - continue to refrain from smoking - Undergo fasting lab work as scheduled. - Follow up in four months for alejandraen sive evaluation and management. [facility] Medical History Hx MRSA infection COVID-19 vaccine series completed CKD (chronic kidney disease) Primary osteoarthritis of both hips HTN (hypertension) Surgical History History of back surgery History of back surgery History of back surgery Family History Father Brain tumor Mother HTN (hypertension) COPD (chronic obstructive pulmonary disease) Diabetes mellitus Maternal Grandfather No problems noted. Maternal Grandmother No problems noted. Paternal Grandfather No problems noted. Paternal Grandmother No problems noted. Social History Household Members: Family Household Members Other:: sister Housing: House Are you a primary career development coordinator to a significant other at home: No Do you presently have visiting nurse or other home services: No Alcohol intake: current Alcohol intake frequency: 3 or more drinks per day Alcohol type: beer Patient Tobacco Use Status: Former Tobacco user Tobacco use type: Cigarette Cigarettes Per Day: 3 Years Smoked: 27 Packs per year/per ci.05 e-Cigarette/Vaping Use: Never Used Second Hand Smoke Exposure: No Substance Use Type: Marijuana service: No Current occupational status: retired Cognitive needs: No Hearing needs: No Vision needs: Yes Questionnaire PHQ-9 Over the last 2 weeks, how often have you been bothered by any of the following problems? 1. Little interest or pleasure in doing things: not at all 2. Feeling down, depressed, or hopeless: not at all 3. Trouble falling or staying asleep, or sleeping too much: not at all 4. Feeling tired or having little energy: several days 5. Poor appetite or overeating: not at all 6. Feeling bad about yourself - or that you are a failure or have let yourself or your family down: not at all 7. Trouble concentrating on things, such as reading the newspaper or watching television: not at all 8. Moving or speaking so slowly that other people could have noticed. Or the opposite - being so fidgety or restless that you have been moving around a lot more than usual: not at all 9. Thoughts that you would be better off or of hurting yourself in some way: not at all Total score: 1 Depression Screening Interpretation: Negative Depression Screening Done: Yes 56880 - PHQ-9 Billing: Yes Source: Developed by Drs. Tomy Jefferson, Regina Coffman, Kraig Arrington and colleagues, with an educational ricci from [employer]. Thrive Questionnaire Date Thrive assessed: 01/20/25 I am a: Patient What is your living situation today?: I have a steady place to live Within the past 12 months, did the food you bought not last and you didn't have the money to get more?: Never true Within the past 12 months, did you worry whether your food would run out before you got money to buy more?: Never true Do you have trouble paying for medicines?: No Do you have trouble getting transportation to medical appointments?: No Do you have trouble paying your heating and electricity bill?: No Do you have trouble taking care of your child, family member or friend?: No Do you have trouble with day-to-day activities such as bathing, preparing meals, shopping, managing finances, etc.?: No Are you currently unemployed and looking for a job?: No Are you interested in more education?: No Please select the resources that you would like help with: None THRIVE Score: 0 AUDIT C Alcohol Use Questionnaire (AUDIT-C) 1. How often do you have a drink containing alcohol?: Monthly or less 2. How many drinks containing alcohol do you have on a typical day when you are drinking?: 1 or 2 3. How often do you have six or more drinks on one occasion?: Never Total Score: 1 JOSÉ-7 AMB Questionnaire JOSÉ-7 Date JOSÉ - 7 assessed: 01/20/25 Feeling nervous, anxious, or on edge: 0 = Not at all Not being able to stop or control worryin = Not at all Worrying too much about different things: 0 = Not at all Trouble relaxin = Not at all Being so restless that it is hard to sit still: 0 = Not at all Becoming easily annoyed or irritable: 0 = Not at all Feeling afraid as if something awful might happen: 0 = Not at all Total JOSÉ-7 score (0-4 normal; 5-9 mild; 10-14 moderate; 15-21 severe): 0 Source: Developed by Drs. Tomy Jefferson, Regina Coffman, Kraig Arrington and colleagues, with an educational ricci from [employer]. JOSÉ-7 Assessment Billing JOSÉ-7 Assessment Tool: JOSÉ-7 Assessment 48138 Physical exam (Primary Care) Vital Signs: Last Vital Signs Temp 98.9 F 01/20/25 12:17 Pulse 87 01/20/25 12:17 Resp 18 01/20/25 12:17 BP 138/74 01/20/25 12:17 Pulse Ox 96 01/20/25 12:17 Oxygen Delivery Method Room Air 01/20/25 12:17 BMI result Body Mass Index 21.1 Tobacco/Smoking Status: Tobacco use Status Tobacco use date assessed 01/20/25 01/20/25 12:24 Patient Tobacco Use Status Former Tobacco user 01/20/25 12:24 Tobacco use type Cigarette 01/20/25 12:24 e-Cigarette/Vaping Use Never Used 01/20/25 12:24 PHQ-9: PHQ-9 Score PHQ-9: Total score 1 01/20/25 12:47 Depression Screening Interpretation: Negative Thrive Assessment: Date of Thrive Assessment Date Thrive assessed 01/20/25 01/20/25 12:24 Coding Level of Care Code Est Pt Level 4 (16481) Diagnoses Pancreatic duct dilated K86.89 Smoker F17.200 Family history of pancreatic cancer Z80.0 Influenza A J10.1 Pneumonia J18.9 Hypoxia R09.02 Additional Codes JOSÉ-7 Assessment Billing - JOSÉ-7 Assessment Tool: JOSÉ-7 Assessment 72472 ([id number]) PHQ-9 - 17255 - PHQ-9 Billing: Yes ([id number]) Assessment & Plan Assessment & Plan (1) Pancreatic duct dilated: Code(s): K86.89 - Other specified diseases of pancreas Category: Medical (2) Smoker: Code(s): F17.200 - Nicotine dependence, unspecified, uncomplicated Category: Social Hx (3) Family history of pancreatic cancer: Code(s): Z80.0 - Family history of malignant neoplasm of digestive organs Category: Medical (4) Influenza A: Code(s): J10.1 - Influenza due to other identified influenza virus with other respiratory manifestations Category: Medical (5) Pneumonia: Code(s): J18.9 - Pneumonia, unspecified organism Category: Medical (6) Hypoxia: Code(s): R09.02 - Hypoxemia Category: Medical Plan . Orders: Orders Complete Blood Count Auto Diff Today F17.200 - Nicotine dependence, unspecified, uncomplicated, J10.1 - Influenza due to other identified influenza virus with other respiratory manifestations, J18.9 - Pneumonia, unspecified organism, R09.02 - Hypoxemia, Z80.0 - Family history of malignant neoplasm of digestive organs UA CC w/rflx Micro + Cult Today F17.200 - Nicotine dependence, unspecified, uncomplicated, J10.1 - Influenza due to other identified influenza virus with other respiratory manifestations, J18.9 - Pneumonia, unspecified organism, R09.02 - Hypoxemia, Z80.0 - Family history of malignant neoplasm of digestive organs Comprehensive Hurt. Panel Fast Today F17.200 - Nicotine dependence, unspecified, uncomplicated, J10.1 - Influenza due to other identified influenza virus with other respiratory manifestations, J18.9 - Pneumonia, unspecified organism, R09.02 - Hypoxemia, Z80.0 - Family history of malignant neoplasm of digestive organs TSH reflex Free T4 Today F17.200 - Nicotine dependence, unspecified, uncomplicated, J10.1 - Influenza due to other identified influenza virus with other respiratory manifestations, J18.9 - Pneumonia, unspecified organism, R09.02 - Hypoxemia, Z80.0 - Family history of malignant neoplasm of digestive organs Lipid Panel Today F17.200 - Nicotine dependence, unspecified, uncomplicated, J10.1 - Influenza due to other identified influenza virus with other respiratory manifestations, J18.9 - Pneumonia, unspecified organism, R09.02 - Hypoxemia, Z80.0 - Family history of malignant neoplasm of digestive organs PFT pulmonary function test Today F17.200 - Nicotine dependence, unspecified, uncomplicated, R09.02 - Hypoxemia XR chest 2V 5 Weeks F17.200 - Nicotine dependence, unspecified, uncomplicated, J18.9 - Pneumonia, unspecified organism
[2025-01-20 12:17] VITALS: BP 138/74; PULSE 87; RESP 18; TEMP 37.2; O2SAT 96; BMI 21.1
--- OUTSIDE RECORDS SUMMARY | 2025-01-20 14:16 | XMS_ITS | Clinical Summary ---
Author Organization [facility], Address [address] [place] [address] [place] [address] Phone Care Team Providers Care Emergency Department Manager Name Role Phone Syd Stevens NP Primary Care Provider [phone] Allergies Active Allergy Reactions Criticality Noted Date Comments Tizanidine 12/19/2020 Medications lisinopril (PRINIVIL,ZESTRI L) 20 MG tablet Take 20 mg by mouth daily 11/28/2020 Active Active Problems Problem Noted Date Diagnosed Date Stage 3b chronic kidney disease 12/19/2020 Hypertension 12/19/2020 Social History Tobacco Use Types Packs/Day Years Used Date Smoking Tobacco: Some Days Smokeless Tobacco: Never Alcohol Use Standard Drinks/Week Comments Yes 0 (1 standard drink = 0.6 oz pur e alcohol) Sex and Gender Information Value Date Recorded Sex Assigned at Not on file Legal Sex Male 12:19 PM EST Gender Identity Not on file Sexual Orientation Not on file Last Filed Vital Signs Vital Sign Reading Time Taken Comments Blood Pressure 130/62 02/17/2021 2:32 PM EDT Pulse - - Temperature - - Respiratory Rate - - Oxygen Saturation - - Inhaled Oxygen Concentration - - Weight 78 kg (172 lb) 02/17/2021 2:32 PM EDT Height - - Body Mass Index - - Plan of Treatment Health Maintenance Due Date Last Done Comments Pneumococcal Vaccine: 65+ Ye ars (1 of 2 - PCV) 1961 Colorectal Cancer Screening: Annual FOBT 2006 Colorectal Cancer Screening: Colonoscopy 2006 Colorectal Cancer Screening: Sigmoidoscopy 2006 Influenza Vaccine (#1) 2024 Hepatitis B Vaccine Aged Out No longe r eligible based on patient's age to complete this topic Insurance [facility] Care Teams Emergency Department Manager Relationship Specialty Start Date End Date Syd Stevens NP [address] [place] [address] PCP - General Nurse Practitioner 11/24/20
== END 2025-01-20 13:59 | disposition home or self-care (01) ==
LOC: HO.HMCC 12:15
PROVIDERS: Visit Provider Nurse Practitioner Family
DX: K86.89 Other specified diseases of pancreas (principal); F17.200 Nicotine dependence, unspecified, uncomplicated; Z80.0 Family history of malignant neoplasm of digestive organs; J10.1 Influenza due to other identified influenza virus with other respiratory manifestations; J18.9 Pneumonia, unspecified organism; R09.02 Hypoxemia

== ENCOUNTER → 2025-01-20 12:14 | Outpatient (BNVA) | payer MEDICARE, SELFPAY | PROVIDERS: Visit Provider Nurse Practitioner Family | DX: K86.89 Other specified diseases of pancreas (principal); J10.1 Influenza due to other identified influenza virus with other respiratory manifestations; J18.9 Pneumonia, unspecified organism; R09.02 Hypoxemia; F17.200 Nicotine dependence, unspecified, uncomplicated; Z70.0 Counseling related to sexual attitude; Z71.6 Tobacco abuse counseling | CPT/HCPCS: 96127; 99212 ==

== ENCOUNTER 2025-01-22 11:18 | Outpatient (REF) | payer MEDICARE, SELFPAY ==
--- OUTSIDE RECORDS SUMMARY | 2025-01-22 13:04 | XMS_ITS | Clinical Summary ---
Author Organization [facility], Address [address] [place] [address] [place] [address] Phone Care Team Providers Care Financial Planning Analyst Name Role Phone Syd Stevens NP Primary Care Provider [phone] Allergies Active Allergy Reactions Criticality Noted Date [...] patient's age to complete this topic Insurance [facility] Care Teams Financial Planning Analyst Relationship Specialty Start Date End Date Syd Stevens NP [address] [place] [address] PCP - General Nurse Practitioner 11/24/20
[2025-01-22 13:45] LABS: MANUAL DIFF FLAG NO
[2025-01-22 13:51] LABS: Appearance Urine Clear; Color Urine Yellow; Glucose Urine UA Negative (Negative); Leukocyte Esterase Urine Negative (Negative); Nitrite Urine Negative (Negative); Urine Blood Negative (Negative); Urine Ketones Trace mg/dL (Negative); Urine Protein Trace mg/dL (Neg-Trace)
[2025-01-22 13:52] LABS: Basophils Percent Auto 0.5 % (0-2); Eosinophils Absolute Auto 0.2 X10*3/uL (0.0-0.4); Eosinophils Percent Auto 2.7 % (0-4); Hematocrit 37.8 % (42.0-52.0); Hemoglobin 12.6 g/dl (14.0-18.0); Imm Gran Abs Auto 0.02 X10*3/uL (0.00-0.03); Imm Gran Pct Auto 0.4 % (0.0-0.4); Lymphocytes Absolute Auto 1.3 X10*3/uL (1.2-4.9); Lymphocytes Percent Auto 23.1 % (20-40); Mean Corpuscular HGB Conc 33.3 g/dl (31.0-36.0); Mean Corpuscular Hemoglobin 31.1 pg (27.0-33.0); Mean Corpuscular Volume 93.3 fL (80.0-98.0); Mean Platelet Volume 10.8 fL (9.4-12.4); Monocytes Absolute Auto 0.4 X10*3/uL (0.1-1.2); Monocytes Percent Auto 7.7 % (2-11); Neutrophils Absolute Auto 3.7 x10*3/uL (2.0-8.3); Neutrophils Percent Auto 65.6 % (45-73); Platelet Count 231 X10*3/uL (160-400); Red Blood Count 4.05 X10*6/uL (4.60-5.80); Red Cell Distribution Width 14.3 % (11.0-16.0); White Blood Count 5.6 X10*3/uL (4.8-10.8)
[2025-01-22 14:12] LABS: Alanine Aminotransferase 40 U/L (0-40); Albumin Level 3.3 g/dL (3.5-5.0); Alkaline Phosphatase 112 U/L (39-117); Anion Gap 12 (12-20); Aspartate Amino Transferase 54 U/L (5-37); Bilirubin Total 0.5 mg/dL (0.0-1.0); Blood Urea Nitrogen 19 mg/dL (9-16); Calcium 8.7 mg/dL (8.4-10.2); Carbon Dioxide 25 mmol/L (22-29); Chloride 109 mmol/L (96-108); Cholesterol 178 mg/dL (<200); Estimated Glomerular Filt Rate > 60; Glucose Fasting 109 mg/dL (60-99); HDL Cholesterol 68 mg/dL (>40); LDL Cholesterol Calculated 98 mg/dL (<100); Potassium 4.7 mmol/L (3.3-5.1); Sodium 141 mmol/L (135-145); Total Protein 6.4 g/dL (6.5-8.0); Triglycerides 61 mg/dL (<150)
[2025-01-22 14:19] LABS: Prostate Specific Antigen Scr 1.32 ng/mL (<0.05-4.0)
[2025-01-22 14:30] LABS: TSH reflex Free T4 0.84 uIU/mL (0.32-4.0)
[2025-01-23 09:54] LABS: Carbohydrate Antigen 19-9 40 U/mL (<34)
== END 2025-01-22 11:19 | disposition home or self-care (01) ==
LOC: HO.HMGCLDS 11:18
PROVIDERS: PCP Nurse Practitioner Family; Visit Provider Nurse Practitioner Family
DX: Z12.5 Encounter for screening for malignant neoplasm of prostate (principal); Z13.6 Encounter for screening for cardiovascular disorders; J10.1 Influenza due to other identified influenza virus with other respiratory manifestations; J18.9 Pneumonia, unspecified organism; R09.02 Hypoxemia; F17.200 Nicotine dependence, unspecified, uncomplicated; Z80.0 Family history of malignant neoplasm of digestive organs
CPT/HCPCS: 36415; 80053; 80061; 81003; 84153; 84443; 85025; 86301

== ENCOUNTER 2025-02-04 11:18 | Outpatient (REF) | payer MEDICARE, SELFPAY ==
--- NOTE | ~2025-02-04 | MR_ITS ---
EXAMINATION: MRI Abdomen without and with contrast HISTORY: Z80.0 - Family history of malignant neoplasm of digestive organs COMPARISON: Correlation is made with the upper abdominal images from a chest CT dated 01/06/2025 and an abdominal ultrasound dated 01/07/2025. TECHNIQUE: Axial in and out of phase T1-weighted gradient echo, axial diffusion weighted, and axial and coronal HASTE T2 with fat saturation images were obtained through the abdomen. Subsequently, fat suppressed axial and coronal T1-weighted images were obtained after the intravenous administration of 7 mL Gadavist. FINDINGS: There is no significant signal loss within the liver on opposed phase images to suggest steatosis. There is moderate intrahepatic biliary ductal dilatation. No enhancing liver mass is identified. The hepatic and portal veins are patent. The gallbladder is moderately distended. No intraluminal calculi are identified. The common bile duct is dilated measuring up to 1.9 cm in diameter. No intraluminal filling defects are identified to suggest choledocholithiasis. The pancreatic duct is moderately dilated and there is mild pancreatic atrophy. No pancreatic mass is seen. No abnormal enhancement is seen in the region of the ampulla. The spleen and adrenals are unremarkable. There is scarring at the upper poles of both kidneys. No retroperitoneal lymphadenopathy or ascites is identified in the upper abdomen. The visualized bones demonstrate normal signal intensity. MR/MR abdomen wo/w con IMPRESSION: Intra and extrahepatic biliary ductal dilatation, with dilatation of the pancreatic duct and gallbladder compatible with biliary obstruction. No cause for obstruction is seen. Further evaluation with ERCP is recommended to exclude a stricture or small mass which is occult by imaging. Electronically signed by: Tomy Zayas MD 02/04/2025 01:01 PM EDT
[2025-02-04] MEDS: gadobutroL 7.5 ML VIAL IVPUSH (12:47)
--- OUTSIDE RECORDS SUMMARY | 2025-02-04 14:59 | XMS_ITS | Clinical Summary ---
Author Organization [facility], Address [address] [place] [address] [place] [address] Phone Care Team Providers Care Microsystems Engineer Name Role Phone Syd Stevens NP Primary Care Provider [phone] Allergies Active Allergy Reactions Criticality Noted Date [...] patient's age to complete this topic Insurance [facility] Care Teams Microsystems Engineer Relationship Specialty Start Date End Date Syd Stevens NP [address] [place] [address] PCP - General Nurse Practitioner 11/24/20
== END 2025-02-04 11:19 | disposition home or self-care (01) ==
LOC: HO.MRI 11:18
PROVIDERS: PCP Nurse Practitioner Family; Visit Provider Nurse Practitioner Family
DX: K86.89 Other specified diseases of pancreas (principal); F17.200 Nicotine dependence, unspecified, uncomplicated; Z80.0 Family history of malignant neoplasm of digestive organs
CPT/HCPCS: 74183; A9585

== ENCOUNTER → 2025-02-04 11:29 | Outpatient (BNV) | payer MEDICARE, SELFPAY | PROVIDERS: PCP Nurse Practitioner Family; Visit Provider Radiology Diagnostic Radiology | DX: K83.8 Other specified diseases of biliary tract (principal) | CPT/HCPCS: 74183 ==

== ENCOUNTER 2025-02-12 10:38 | Outpatient (REF) | payer MEDICARE, SELFPAY ==
--- NOTE | ~2025-02-12 | XR_ITS ---
EXAMINATION: XR CHEST CLINICAL INFORMATION: F17.200 - Nicotine dependence, unspecified, uncomplicated COMPARISON: January 06, 2025. TECHNIQUE: 2 views of the chest were obtained. FINDINGS: No consolidation, pleural effusion or pneumothorax. Cardiomediastinal silhouette size is normal. Osseous structures are intact. XR/XR chest 2V IMPRESSION: No acute airspace disease. Overall improved. Electronically signed by: Eitan Miller MD 02/12/2025 11:36 AM EDT
--- OUTSIDE RECORDS SUMMARY | 2025-02-12 12:12 | XMS_ITS | Clinical Summary ---
Author Organization [facility], Address [address] [place] [address] [place] [address] Phone Care Team Providers Care Pollution Control Technician Name Role Phone Syd Stevens NP Primary Care Provider [phone] Allergies Active Allergy Reactions Criticality Noted Date [...] patient's age to complete this topic Insurance [facility] Care Teams Pollution Control Technician Relationship Specialty Start Date End Date Syd Stevens NP [address] [place] [address] PCP - General Nurse Practitioner 11/24/20
[2025-02-12 13:30] LABS: MANUAL DIFF FLAG NO
[2025-02-12 13:44] LABS: Basophils Absolute Auto 0.1 X10*3/uL (0.0-0.2); Basophils Percent Auto 0.8 % (0-2); Eosinophils Absolute Auto 0.2 X10*3/uL (0.0-0.4); Eosinophils Percent Auto 2.9 % (0-4); Hematocrit 38.4 % (42.0-52.0); Hemoglobin 12.4 g/dl (14.0-18.0); Imm Gran Abs Auto 0.02 X10*3/uL (0.00-0.03); Imm Gran Pct Auto 0.3 % (0.0-0.4); Immature Retic Fraction 9.3 % (2.3-13.4); Lymphocytes Absolute Auto 1.7 X10*3/uL (1.2-4.9); Lymphocytes Percent Auto 26.3 % (20-40); Mean Corpuscular HGB Conc 32.3 g/dl (31.0-36.0); Mean Corpuscular Hemoglobin 31.2 pg (27.0-33.0); Mean Corpuscular Volume 96.7 fL (80.0-98.0); Mean Platelet Volume 10.6 fL (9.4-12.4); Monocytes Absolute Auto 0.7 X10*3/uL (0.1-1.2); Neutrophils Absolute Auto 3.9 x10*3/uL (2.0-8.3); Neutrophils Percent Auto 58.7 % (45-73); Platelet Count 231 X10*3/uL (160-400); Red Blood Count 3.97 X10*6/uL (4.60-5.80); Red Cell Distribution Width 13.9 % (11.0-16.0); Retic HGB Equivalent 32.4 pg (30.0-35.0); Reticulocyte Percent 0.7 % (0.5-1.8); Reticulocytes Absolute 0.029 X10*6/uL (0.026-0.095); White Blood Count 6.6 X10*3/uL (4.8-10.8)
[2025-02-12 14:15] LABS: Iron 35 mcg/dL (45-160); Lactate Dehydrogenase 301 U/L (118-273); Percent Iron Saturation 13 % (15-50); Total Iron Binding Capacity 270 mcg/dL (228-428); Unsaturated Iron Binding 235 ug/dL
[2025-02-12 14:24] LABS: Ferritin 190 ng/mL (20-250)
[2025-02-18 13:08] LABS: Alpha Fetoprotein 1.7 ng/mL (<6.1)
== END 2025-02-12 10:39 | disposition home or self-care (01) ==
LOC: HO.HMGCX 10:38
PROVIDERS: PCP Nurse Practitioner Family; Visit Provider Nurse Practitioner Family
DX: J18.9 Pneumonia, unspecified organism (principal); K83.1 Obstruction of bile duct; K86.89 Other specified diseases of pancreas; D64.9 Anemia, unspecified; F17.200 Nicotine dependence, unspecified, uncomplicated; Z80.0 Family history of malignant neoplasm of digestive organs
CPT/HCPCS: 36415; 71046; 82105; 82378; 82728; 83540; 83615; 85025; 85045

== ENCOUNTER → 2025-02-12 10:47 | Outpatient (BNV) | payer MEDICARE, SELFPAY | PROVIDERS: PCP Nurse Practitioner Family; Visit Provider Radiology Diagnostic Radiology | DX: F17.200 Nicotine dependence, unspecified, uncomplicated (principal) | CPT/HCPCS: 71046 ==

== ENCOUNTER → 2025-03-29 08:32 | Outpatient (REF) | payer MEDICARE, SELFPAY ==
--- NOTE | ~2025-03-29 | NM_ITS ---
EXAMINATION: NM HEPATOBILIARY WITHOUT PHARM HISTORY: K83.1 - Obstruction of bile duct. TECHNIQUE: An hepatobiliary scan was performed following intravenous administration of 5 mCi technetium 99m-mebrofenin. Images were obtained to 30 minutes. The patient admitted to stop imaging due to pain. Additional static delayed images were obtained at 45 minutes and at 60 minutes. The patient could not lie supine again for administration of CCK. COMPARISON: Correlation is made with an abdominal ultrasound dated 01/07/2025 and an MRI of the abdomen dated 02/04/2025. FINDINGS: There is normal uptake and excretion of the radiopharmaceutical by the liver. Common bile duct activity is seen by 28 minutes. On the 45 minute image, there is activity in the gallbladder and small bowel. NM/NM hepatobiliary wo pharm IMPRESSION: Limited examination as described. No evidence of cystic duct or complete common bile duct obstruction. However, given findings on prior MRI of the abdomen, ERCP is recommended. Electronically signed by: Tomy Zayas MD 03/29/2025 10:51 AM EDT
--- OUTSIDE RECORDS SUMMARY | 2025-03-29 08:40 | XMS_ITS | Clinical Summary ---
Author Organization [facility], Address [address] [place] [address] [place] [address] Phone Care Team Providers Care Experimental Rocket Sled Mechanic Name Role Phone Syd Stevens NP Primary Care Provider [phone] Allergies Active Allergy Reactions Criticality Noted Date [...] Due Date Last Done Comments Pneumococcal Vaccine: 50+ Ye ars (1 of 2 - PCV) 1976 Colorectal Cancer Screening: Annual FOBT 2006 Colorectal Cancer Screening: Colonoscopy 2006 Colorectal Cancer Screening: Sigmoidoscopy 2006 Influenza Vaccine (Season Ended) 2025 Hepatitis B Vaccine Aged Out No longe r eligible based on patient's age to complete this topic Insurance [facility] Care Teams Experimental Rocket Sled Mechanic Relationship Specialty Start Date End Date Syd Stevens NP [address] [place] [address] PCP - General Nurse Practitioner 11/24/20
== END ==
LOC: HO.NUCMED 08:32
PROVIDERS: PCP Nurse Practitioner Family; Visit Provider Nurse Practitioner Family
DX: K83.1 Obstruction of bile duct (principal)
CPT/HCPCS: 78226; A9537

== ENCOUNTER → 2025-03-29 08:34 | Outpatient (BNV) | payer MEDICARE, SELFPAY | PROVIDERS: PCP Nurse Practitioner Family; Visit Provider Radiology Diagnostic Radiology | DX: K83.1 Obstruction of bile duct (principal) | CPT/HCPCS: 78226 ==

== ENCOUNTER 2025-05-26 10:09 | Outpatient (AMB) | payer MEDICARE, SELFPAY ==
--- NOTE | 2025-05-26 10:13 | A.OFFPC_ITS ---
Vital Signs 05/26/25 10:15 Height 5 ft 10 in Weight 150 lb BMI 21.5 BP 110/58 L Blood Pressure Location Lt brachial Position Sitting Respiration 16 Pulse 69 Pulse Source Pulse Oximeter Temp 98.5 F Temp Source Oral Pulse Oximetry (%) 97 Oxygen Delivery Method Room Air Intake Visit Reasons: f/u Veterinary Microbiologist Required: No Accompanied by: Self / Same As Patient Allergies tizanidine Adverse Reaction (Unknown, Verified 05/26/25 10:46) Nightmares Medication List - Last Reconciled 05/26/25 by Syd Stevens, [facility]- albuterol sulfate 90 mcg/actuation (Ventolin HFA) 1 - 2 puffs inhalation Q4-6H PRN Tobacco use date assessed: 05/26/25 Fall risk assessment: No Falls in past year Last assessed Fall Risk: 05/26/25 Dental Screening Dental Screen Date: 05/26/25 Did you have a dental visit in the last 12 months?: Yes Did you have a dental problem in the last 6 months where you did not have access to dental care?: No Was dental information given to patient?: Patient has dentist HPI f/u HPI Details Chief Complaint The patient presents for a follow-up due to a family history of pancreatic carcinoma. History of Present Illness The patient is a 69-year-old male presenting with a follow-up visit primarily due to a family history of pancreatic carcinoma. Recent imaging, including an MRI of the abdomen, revealed intra and extra hepatic biliary ductal dilatation and dilation of the pancreatic duct, leading to a recommendation for an ERCP. A HIDA scan showed no evidence of cystic duct or complete common bile duct obstruction, which was seen on MRI, yet an ERCP remains recommended, and the patient has an upcoming appointment with Gastroenterology in August. The patient denies any abdominal pain or hematochezia but reports constipation, which may be related to his current use of iron supplements. Recommendations were made to increase dietary fiber, water intake, and use stool softeners, with plans to check iron levels and a complete blood count. The patient has a history of smoking up to five cigarettes daily since age 37, which does not qualify him for low-dose CT scans of the lungs. He denies dyspnea but has a history of pneumonia, with the last chest X-ray in February showing no acute airspace disease and improved pneumonia. Socially, the patient reports feeling well, gaining weight, and is excited about setting up a boat for [employer]. Social History - Tobacco use: Smokes up to 5 cigarettes a day since age 37 - Recreational activity: Setting up a junaid at for [employer] Health Maintenance - Recommended ERCP due to ductal dilatat ion - Gastroenterology appointment scheduled for August - Increase dietary fiber and water intak e for constipation management Review of Systems - Gastrointestinal: Denies abdominal merlyn n, denies hematochezia, reports constipation - Respiratory: Denies dyspnea, -denies any si or hi, denies any fatigue , CP, increased SOB Physical Exam General: Cooperative, healthy appearing, comfortable, no acute distress and well developed Orientation: Patient oriented x3 Limitations: No limitations Head: Normal to inspection Ears: Hearing grossly normal bilaterally Nose: Normal external nose present Face and sinus: Normal facial exam Eyes: Appearance normal, both eyes and all related structures Neck: Normal visual inspection and Yes full ROM Respiratory: Diminished moving air bilaterally, able to speak in complete sentences. Clear to auscultation bilaterally Cardiovascular: Regular rate and rhythm. Normal S1 and S2, no carotid bruits auscultated, no murmurs noted GI: Normal to inspection. Soft to palpation and nontender, no abdominal pain with palpation Skin: No rashes or lesions noted Neuro: Patient oriented x3 Extremities: Normal to inspection Results - MRI of abdomen: Intra and extra hepati c biliary ductal dilatation, dilation of pancreatic duct - HIDA scan: No evidence of cystic duct or complete common bile duct obstruction - Chest X-ray (February): No acute airspace disease, improved pneumonia Plan The patient is advised to follow up with Gastroenterology in August for further evaluation of the pancreatic duct dilation and biliary ductal dilatation, as an ERCP has been recommended to assess these findings more thoroughly. For constipation, the patient is advised to increase dietary fiber and water intake, and consider stool softeners as needed. Iron levels and a complete blood count will be checked to monitor the effects of iron supplementation. Given the patient's smoking history, discussions regarding smoking cessation should be considered in future visits, although he does not currently qualify for low-dose CT scans of the lungs. Discussion Notes I discussed with the patient the importance of following up with Gastroenterology for the recommended ERCP to further evaluate the ductal dilatation findings. We also talked about managing constipation through dietary changes and monitoring iron levels. I emphasized the need for regular follow-ups and the potential benefits of smoking cessation, although he does not currently qualify for lung cancer screening with low-dose CT scans. Patient Instructions - Follow up with Gastroenterology in Oct silvia for ERCP. - Increase fiber and water intake to hel p with constipation. - Consider using stool softeners as need ed. - Continue monitoring iron levels and co mplete blood count. [facility] Medical History Hx MRSA infection COVID-19 vaccine series completed CKD (chronic kidney disease) Primary osteoarthritis of both hips HTN (hypertension) Surgical History History of back surgery History of back surgery History of back surgery Family History Father Brain tumor Mother HTN (hypertension) COPD (chronic obstructive pulmonary disease) Diabetes mellitus Maternal Grandfather No problems noted. Maternal Grandmother No problems noted. Paternal Grandfather No problems noted. Paternal Grandmother No problems noted. Social History Household Members: Family Household Members Other:: sister Housing: House Are you a primary pharmacy customer care specialist to a significant other at home: No Do you presently have visiting nurse or other home services: No Alcohol intake: current Alcohol intake frequency: 3 or more drinks per day Alcohol type: beer Patient Tobacco Use Status: Former Tobacco user Tobacco use type: Cigarette Cigarettes Per Day: 3 Years Smoked: 27 e-Cigarette/Vaping Use: Never Used Second Hand Smoke Exposure: No Substance Use Type: Marijuana service: No Current occupational status: retired Cognitive needs: No Hearing needs: No Vision needs: Yes Questionnaire PHQ-9 Over the last 2 weeks, how often have you been bothered by any of the following problems? 1. Little interest or pleasure in doing things: not at all 2. Feeling down, depressed, or hopeless: not at all 3. Trouble falling or staying asleep, or sleeping too much: not at all 4. Feeling tired or having little energy: not at all 5. Poor appetite or overeating: not at all 6. Feeling bad about yourself - or that you are a failure or have let yourself or your family down: not at all 7. Trouble concentrating on things, such as reading the newspaper or watching television: not at all 8. Moving or speaking so slowly that other people could have noticed. Or the opposite - being so fidgety or restless that you have been moving around a lot more than usual: not at all 9. Thoughts that you would be better off or of hurting yourself in some way: not at all Total score: 0 Depression Screening Interpretation: Negative Depression Screening Done: Yes 77742 - PHQ-9 Billing: Yes Source: Developed by Drs. Tomy Jefferson, Regina Coffman, Kraig Arrington and colleagues, with an educational ricci from [employer]. Thrive Questionnaire Date Thrive assessed: 05/26/25 I am a: Patient What is your living situation today?: I have a steady place to live Within the past 12 months, did the food you bought not last and you didn't have the money to get more?: I choose not to answer this question Within the past 12 months, did you worry whether your food would run out before you got money to buy more?: I choose not to answer this question Do you have trouble paying for medicines?: No Do you have trouble getting transportation to medical appointments?: No Do you have trouble paying your heating and electricity bill?: No Do you have trouble taking care of your child, family member or friend?: No Do you have trouble with day-to-day activities such as bathing, preparing meals, shopping, managing finances, etc.?: No Are you currently unemployed and looking for a job?: No Are you interested in more education?: No Please select the resources that you would like help with: Food Currently or been in a relationship where the following occur: I choose not to answer THRIVE Score: 0 AUDIT C Alcohol Use Questionnaire (AUDIT-C) 1. How often do you have a drink containing alcohol?: Never 3. How often do you have six or more drinks on one occasion?: Never Total Score: 0 Score Reviewed/Action Taken: Yes JOSÉ-7 AMB Questionnaire JOSÉ-7 Date JOSÉ - 7 assessed: 05/26/25 Feeling nervous, anxious, or on edge: 0 = Not at all Not being able to stop or control worryin = Not at all Worrying too much about different things: 0 = Not at all Trouble relaxin = Not at all Being so restless that it is hard to sit still: 0 = Not at all Becoming easily annoyed or irritable: 0 = Not at all Feeling afraid as if something awful might happen: 0 = Not at all Total JOSÉ-7 score (0-4 normal; 5-9 mild; 10-14 moderate; 15-21 severe): 0 Source: Developed by Drs. Tomy Jefferson, Rgeina Coffman, Kraig Arrington and colleagues, with an educational ricci from [employer]. JOSÉ-7 Assessment Billing JOSÉ-7 Assessment Tool: JOSÉ-7 Assessment 20833 Physical exam (Primary Care) Vital Signs: Last Vital Signs Temp 98.5 F 05/26/25 10:15 Pulse 69 05/26/25 10:15 Resp 16 05/26/25 10:15 BP 110/58 L 05/26/25 10:15 Pulse Ox 97 05/26/25 10:15 Oxygen Delivery Method Room Air 05/26/25 10:15 BMI result Body Mass Index 21.5 Tobacco/Smoking Status: Tobacco use Status Tobacco use date assessed 05/26/25 05/26/25 10:18 Patient Tobacco Use Status Former Tobacco user 05/26/25 10:18 Tobacco use type Cigarette 05/26/25 10:18 e-Cigarette/Vaping Use Never Used 05/26/25 10:18 PHQ-9: PHQ-9 Score PHQ-9: Total score 0 05/26/25 10:21 Depression Screening Interpretation: Negative Thrive Assessment: Date of Thrive Assessment Date Thrive assessed 01/20/25 05/26/25 10:18 Currently or been in a relationship where the following occur: I choose not to answer Coding Level of Care Code Est Pt Level 3 (91286) Diagnoses Screening for colon cancer Z12.11 Low iron E61.1 Anemia D64.9 Pancreatic duct dilated K86.89 Smoker F17.200 Additional Codes JOSÉ-7 Assessment Billing - JOSÉ-7 Assessment Tool: JOSÉ-7 Assessment 89031 ([id number]) PHQ-9 - 16312 - PHQ-9 Billing: Yes ([id number]) Assessment & Plan Assessment & Plan (1) Screening for colon cancer: Code(s): Z12.11 - Encounter for screening for malignant neoplasm of colon Category: Medical (2) Low iron: Code(s): E61.1 - Iron deficiency Category: Medical (3) Anemia: Code(s): D64.9 - Anemia, unspecified Category: Medical (4) Pancreatic duct dilated: Code(s): K86.89 - Other specified diseases of pancreas Category: Medical (5) Smoker: Code(s): F17.200 - Nicotine dependence, unspecified, uncomplicated Category: Social Hx Plan . Orders: Orders Complete Blood Count Auto Diff Today E61.1 - Iron deficiency Comprehensive Met. Panel Today D64.9 - Anemia, unspecified, E61.1 - Iron deficiency IRON PROFILE Today E61.1 - Iron deficiency Ferritin Today E61.1 - Iron deficiency
[2025-05-26 10:15] VITALS: BP 110/58; PULSE 69; RESP 16; TEMP 36.9; O2SAT 97; BMI 21.5
--- OUTSIDE RECORDS SUMMARY | 2025-05-26 10:42 | XMS_ITS | Clinical Summary ---
Author Organization [facility], Address [address] [place] [address] [place] [address] Phone Care Team Providers Care Vault Clerk Name Role Phone Syd Stevens NP Primary Care Provider [phone] Allergies Active Allergy Reactions Criticality Noted Date [...] Cancer Screening: Sigmoidoscopy 2006 Influenza Vaccine (#1) 2025 Hepatitis B Vaccine Aged Out No longe r eligible based on patient's age to complete this topic Insurance [facility] Care Teams Vault Clerk Relationship Specialty Start Date End Date Syd Stevens NP [address] [place] [address] PCP - General Nurse Practitioner 11/24/20
== END 2025-05-26 10:40 | disposition home or self-care (01) ==
LOC: HO.HMCC 10:10
PROVIDERS: Visit Provider Nurse Practitioner Family
DX: Z12.11 Encounter for screening for malignant neoplasm of colon (principal); E61.1 Iron deficiency; D64.9 Anemia, unspecified; K86.89 Other specified diseases of pancreas; F17.200 Nicotine dependence, unspecified, uncomplicated

== ENCOUNTER → 2025-05-26 10:09 | Outpatient (BNVA) | payer MEDICARE, SELFPAY | PROVIDERS: Visit Provider Nurse Practitioner Family | DX: E61.1 Iron deficiency (principal); K59.00 Constipation, unspecified; F17.210 Nicotine dependence, cigarettes, uncomplicated; D64.9 Anemia, unspecified; K86.89 Other specified diseases of pancreas | CPT/HCPCS: 96127; 99212 ==

== ENCOUNTER 2025-08-09 11:37 | Outpatient (REF) | payer MEDICARE, SELFPAY ==
--- OUTSIDE RECORDS SUMMARY | 2025-08-09 13:05 | XMS_ITS | Clinical Summary ---
Author Organization [facility], Address [address] [place] [address] [place] [address] Phone Care Team Providers Care Precision Lathe Operator Name Role Phone Syd Stevens NP Primary Care Provider [phone] Allergies Active Allergy Reactions Criticality Noted Date [...] patient's age to complete this topic Insurance [facility] Care Teams Precision Lathe Operator Relationship Specialty Start Date End Date Syd Stevens NP [address] [place] [address] PCP - General Nurse Practitioner 11/24/20
[2025-08-09 13:25] LABS: MANUAL DIFF FLAG NO
[2025-08-09 13:45] LABS: Hematocrit 41.2 % (42.0-52.0); Hemoglobin 13.4 g/dl (14.0-18.0); Imm Gran Abs Auto 0.04 X10*3/uL (0.00-0.03); Imm Gran Pct Auto 0.5 % (0.0-0.4); Lymphocytes Absolute Auto 1.7 X10*3/uL (1.2-4.9); Mean Corpuscular HGB Conc 32.5 g/dl (31.0-36.0); Mean Corpuscular Hemoglobin 30.7 pg (27.0-33.0); Mean Corpuscular Volume 94.3 fL (80.0-98.0); NRBC Abs Auto 0.000 X10*3/uL (0.0-0.012); NRBC Pct Auto 0.0 /100WBC (0.0-0.2); Platelet Count 223 X10*3/uL (160-400); Red Blood Count 4.37 X10*6/uL (4.60-5.80); White Blood Count 8.7 X10*3/uL (4.8-10.8)
[2025-08-09 14:04] LABS: Alanine Aminotransferase 55 U/L (0-40); Albumin Level 4.1 g/dL (3.5-5.0); Alkaline Phosphatase 74 U/L (39-117); Anion Gap 11 (12-20); Aspartate Amino Transferase 64 U/L (5-37); Blood Urea Nitrogen 21 mg/dL (9-16); Calcium 8.9 mg/dL (8.4-10.2); Carbon Dioxide 27 mmol/L (22-29); Chloride 108 mmol/L (96-108); Estimated Glomerular Filt Rate 57; Iron 50 mcg/dL (45-160); Percent Iron Saturation 18 % (15-50); Potassium 4.3 mmol/L (3.3-5.1); Sodium 142 mmol/L (135-145); Total Iron Binding Capacity 274 mcg/dL (228-428); Total Protein 6.7 g/dL (6.5-8.0); Unsaturated Iron Binding 224 ug/dL
[2025-08-09 14:22] LABS: Ferritin 149 ng/mL (20-250)
== END 2025-08-09 11:38 | disposition home or self-care (01) ==
LOC: HO.HMGCLDS 11:37
PROVIDERS: Visit Provider Nurse Practitioner Family
DX: E61.1 Iron deficiency (principal); D64.9 Anemia, unspecified
CPT/HCPCS: 36415; 80053; 82728; 83540; 85025

== ENCOUNTER 2025-08-11 13:23 | Outpatient (AMB) | payer MEDICARE, SELFPAY ==
--- NOTE | 2025-08-11 13:27 | MHC.OFFVIS ---
Vital Signs 08/11/25 13:34 Height 5 ft 10 in Weight 150 lb BMI 21.5 BP 142/68 H Blood Pressure Location Rt radial Position Sitting Pulse 72 Pulse Source Pulse Oximeter Pulse Oximetry (%) 96 Oxygen Delivery Method Room Air Intake Visit Reasons: [place] screening. + FMHx reported. MRI per PCP Intake Note: New pt for recall colo screening. Last colo via Dr. Hernández 2020. CC; Pt denies any GI sx at this time. Pt does have concerns regarding recent labs from PCP and how the anemia relates to GI and what he needs to expect moving forward. Passport Support Manager Required: No Accompanied by: Sister Allergies tizanidine Adverse Reaction (Unknown, Verified 05/26/25 10:46) Nightmares HPI HPI [place] screening. + FMHx reported. MRI per PCP: Details: LAST VISIT Screening for colon cancer 65-year-old male here for pre colonoscopy screening. ?Patient denies any GI, cardiac or respiratory symptoms.? Denies any issues with anesthesia in the past.? Denies any history of sleep apnea.? No history infectious diseases in the past or present.? Not on any anticoagulation therapy.?Family history of colon cancer: his uncle.? Patient denies melena, hematochezia, unintentional weight loss or ribbon like stools.? Discussed at length the pre-procedure,? prep, diet & medications as well as what to expect prior, during and after the procedure.?? Stressed the importance of good bowel prep. ??Patient verbalizes understanding and agrees to plan of care.? He was given the opportunity to ask questions and all questions answered.? We will see him after the procedure.? ? Thank you for allowing me to participate in his care Plan Orders Orders Comprehensive Met. Panel 06/21/21 Z12.11 Complete Blood Count no Diff 06/21/21 Z12.11 Medications New bisacodyl (Dulcolax (bisacodyl)) take 2 tabs at noon the day before your colonoscopy 10 mg (2 x 5 mg) PO ONCE 1 day 2 tabs 0RF Z12.11 polyethylene glycol 3350 (Miralax) As directed by gastroenterology department at [facility] 238 grams PO ONCE 238 grams 0RF Z12.11 COLONOSCOPY Findings: Terminal Ileum-normal Cecum: 8-9 mm sessile polyp removed with cold snare Ascending Colon: 8-9 mm sessile polyp removed with cold snare Transverse Colon -normal Descending Colon:normal Sigmoid Colon: normal Rectum: Retroflexion with small internal hemorrhoids, grade I Anorectum - normal Colon preparation: Huntington Bowel Preparation Scale Right colon; 1 Transverse colon: 1 Left colon; 1 (0 = Unprepared colon segment with mucosa not seen due to solid stool that cannot be cleared. 1 = Portion of mucosa of the colon segment seen, but other areas of the colon segment not well seen due to staining, residual stool and/or opaque liquid. 2 = Minor amount of residual staining, small fragments of stool and/or opaque liquid, but mucosa of colon segment seen well. 3 = Entire mucosa of colon segment seen well with no residual staining, small fragments of stool or opaque liquid) Impression and Post Procedure Diagnosis: poor prep internal hemorrhoids polyps Plan: High fiber diet leaflet Avoid straining at stool, epsom salts and sitz bath, anusol supps or cream Repeat Colonoscopy in 6-12 months and review prep instructions again PATHOLOGY Diagnosis A. Cecum, polypectomy: Fragments of tubular adenoma; no high-grade dysplasia or carcinoma seen. B. Colon, ascending, polypectomy: Tubular adenoma; no high grade dysplasia or carcinoma seen TODAY'S VISIT Patient is here today for referral. Referred by PCP. Last colonoscopy in 2020 suboptimal prep and patient was supposed to return for colonoscopy in 6-12 months. He had tubular adenoma without high-grade dysplasia or carcinoma. Patient denies melena, hematochezia, unintentional weight loss or ribbon like stools good patient reports to be feeling fairly well. Patient is very active fishing, hiking. Patient denies any cardiac or respiratory symptoms. Back in January MRI of abdomen showed: The pancreatic duct is moderately dilated and there is mild pancreatic atrophy. No pancreatic mass is seen. No abnormal enhancement is seen in the region of the ampulla. Patient denies any abdominal pain. Reports that he has been having good appetite good denies any weight loss. Denies dyspepsia, dysphagia odynophagia. Denies any abdominal pain or discomfort. Occasional left lower quadrant pain and bloating. Recommendation was made for patient to have a ERCP. Will speak to Dr. Hernández in will schedule if appropriate. [facility] Medical History Hx MRSA infection COVID-19 vaccine series completed CKD (chronic kidney disease) Primary osteoarthritis of both hips HTN (hypertension) Surgical History History of back surgery History of back surgery History of back surgery Family History Father Brain tumor Mother HTN (hypertension) COPD (chronic obstructive pulmonary disease) Diabetes mellitus Maternal Grandfather No problems noted. Maternal Grandmother No problems noted. Paternal Grandfather No problems noted. Paternal Grandmother No problems noted. Social History Household Members: Family Household Members Other:: sister Housing: House Are you a primary career development counselor to a significant other at home: No Do you presently have visiting nurse or other home services: No Alcohol intake: current Alcohol intake frequency: 3 or more drinks per day Alcohol type: beer Patient Tobacco Use Status: Former Tobacco user Tobacco use type: Cigarette Cigarettes Per Day: 3 Years Smoked: 27 e-Cigarette/Vaping Use: Never Used Second Hand Smoke Exposure: No Substance Use Type: Marijuana service: No Current occupational status: retired Cognitive needs: No Hearing needs: No Vision needs: Yes Review of Systems Const Denies weight gain and Denies weight loss Card Reports no additional complaints Resp Reports no additional complaints GI Denies abdominal pain, Denies belching, Denies melena, Denies bloating, Denies change in bowel habits, Denies dyspepsia, Denies heartburn, Denies nausea and Denies vomiting Neuro Reports no additional complaints Psych Reports no additional complaints Physical Exam Vital Signs: Last Vital Signs Pulse 72 10/01/25 13:34 BP 142/68 H 08/11/25 13:34 Pulse Ox 96 08/11/25 13:34 Oxygen Delivery Method Room Air 08/11/25 13:34 BMI result Body Mass Index 21.5 Const General: healthy appearing, no acute distress and well developed Nutritional Appearance: well nourished Orientation/consciousness: patient oriented x3 Resp Effort & Inspection: normal respiratory effort, able to speak in complete sentences, no tracheal deviation and symmetric chest movement Auscultation: clear to auscultation bilaterally Cardio Rate: regular rate GI Inspection: Yes normal to inspection and No distended Palpation (GI): Soft to palpation, not firm, nontender and No hepatosplenomegaly present Auscultation: normal bowel sounds General: Yes no CVA tenderness Back/Spine/Pelvis Back: no CVA tenderness Skin General skin exam: elasticity normal, turgor normal and dry skin Neuro General: patient oriented x3 Psych Appearance: grossly normal Mental Status: mental status grossly normal Results Reviewed Results Reviewed: MRI OF ABDOMEN 02/04/2025 FINDINGS: There is no significant signal loss within the liver on opposed phase images to suggest steatosis. There is moderate intrahepatic biliary ductal dilatation. No enhancing liver mass is identified. The hepatic and portal veins are patent. The gallbladder is moderately distended. No intraluminal calculi are identified. The common bile duct is dilated measuring up to 1.9 cm in diameter. No intraluminal filling defects are identified to suggest choledocholithiasis. The pancreatic duct is moderately dilated and there is mild pancreatic atrophy. No pancreatic mass is seen. No abnormal enhancement is seen in the region of the ampulla. The spleen and adrenals are unremarkable. There is scarring at the upper poles of both kidneys. No retroperitoneal lymphadenopathy or ascites is identified in the upper abdomen. The visualized bones demonstrate normal signal intensity. MR/MR abdomen wo/w con IMPRESSION: Intra and extrahepatic biliary ductal dilatation, with dilatation of the pancreatic duct and gallbladder compatible with biliary obstruction. No cause for obstruction is seen. Further evaluation with ERCP is recommended to exclude a stricture or small mass which is occult by imaging. HIDA SCAN 03/29/2025 FINDINGS: There is normal uptake and excretion of the radiopharmaceutical by the liver. Common bile duct activity is seen by 28 minutes. On the 45 minute image, there is activity in the gallbladder and small bowel. NM/NM hepatobiliary wo pharm IMPRESSION: Limited examination as described. No evidence of cystic duct or complete common bile duct obstruction. However, given findings on prior MRI of the abdomen, ERCP is recommended. Assessment & Plan Assessment & Plan (1) Pancreatic duct dilated: Code(s): K86.89 - Other specified diseases of pancreas Category: Medical (2) Screening for colon cancer: Code(s): Z12.11 - Encounter for screening for malignant neoplasm of colon Category: Medical (3) Transaminitis: Code(s): R74.01 - Elevation of levels of liver transaminase levels Plan Will schedule patient for colonoscopy as soon as we can. Message sent to surgical schedulers to bulk procedure for patient. What to expect before during and after procedure discussed with patient. Patient will take Dulcolax 1 week before procedure at night and then 4 tabs day before procedure followed by split MiraLax prep. Please call patient sister. Phone number was provided to surgical garment assembler. Stressed the importance of good bowel prep in clear liquid diet day before procedure. Will speak to Dr. Hernández about possible ERCP, however patient currently has no symptoms and could cause pancreatitis. Will check his lipase, CA 19-9. Increased liver enzymes will check liver fibrosis panel and check pancreatic elastase to rule out pancreatic insufficiency. Patient will be seen after the procedure, sooner on as needed basis. He is agreeable to this plan and verbalizes understanding of instructions. He was given the opportunity to ask questions and all questions answered. Thank you for allowing me to participate in his care Orders: Orders Pancreatic Elastase-1 Today R10.9 - Unspecified abdominal pain Lipase Today R10.9 - Unspecified abdominal pain Liver Fibrosis Pnl Today K76.0 - Fatty (change of) liver, not elsewhere classified Carbohydrate Antigen 19-9 Today K86.89 - Other specified diseases of pancreas Referrals GI Procedure Notification Z12.11 - Encounter for screening for malignant neoplasm of colon Medications: New polyethylene glycol 3350 (Miralax) As directed by gastroenterology department at [facility] 238 grams PO ONCE 238 grams 0RF Z12.11 - Encounter for screening for malignant neoplasm of colon bisacodyl (Dulcolax (bisacodyl)) Start taking 2 tablet every night 7 days before the procedure and 1 day before procedure take 4 tablets at noon time followed by MiraLax prep 10 mg (2 x 5 mg) PO BEDTIME 16 tabs 0RF Z12.11 - Encounter for screening for malignant neoplasm of colon Coding Level of Care Code Est Pt Level 4 (92428) Complex EM visit Add On G2211 Diagnoses Pancreatic duct dilated K86.89 Screening for colon cancer Z12.11 Transaminitis R74.01 Time Spent (min) 50 Comment 35 minutes spent with patient and additional 15 minutes spent reviewing his records
[2025-08-11 13:34] VITALS: BP 142/68; PULSE 72; O2SAT 96; BMI 21.5
--- OUTSIDE RECORDS SUMMARY | 2025-08-11 14:34 | XMS_ITS | Clinical Summary ---
Author Organization [facility], Address [address] [place] [address] [place] [address] Phone Care Team Providers Care Shaper Setter Name Role Phone Syd Stevens NP Primary Care Provider [phone] Allergies Active Allergy Reactions Criticality Noted Date [...] patient's age to complete this topic Insurance [facility] Care Teams Shaper Setter Relationship Specialty Start Date End Date Syd Stevens NP [address] [place] [address] PCP - General Nurse Practitioner 11/24/20
--- OUTSIDE RECORDS SUMMARY | 2025-08-11 14:34 | XMS_ITS | Clinical Summary ---
Author Organization [facility] Address [address] [place] [address] Phone Care Team Providers Care Avionics Mechanic Name Role Phone Syd Stevens NP Primary Care Provider + Allergies No known active allergies Social History Tobacco Use Types Packs/Day Years Used Date Smoking Tobacco: Never Assessed Education Answer Date Recorded Are you interested in more education? Not on yisel e 03/08/2023 Are you concerned about learning? Not on file 03/08/2023 No 03/08/2023 No 03/08/2023 Digital Access Answer Date Recorded No 04/08/2023 No 04/08/2023 No 04/08/2023 Reliable internet access at home? Not on file 04/08/2023 Device with a working camera? Not on file Sex and Gender Information Value Date Recorded Sex Assigned at Male 02/24/2023 7:15 PM EDT Legal Sex Male 9:52 PM EDT Gender Identity Male 02/24/2023 7:15 PM EDT Sexual Orientation Not on file Last Filed Vital Signs Vital Sign Reading Time Taken Comments Blood Pressure 147/79 02/24/2023 7:45 PM EDT Pulse 108 02/24/2023 7:16 PM EDT Temperature 36.9 C (98.4 F) 02/24/2023 7:16 PM EDT Respiratory Rate 16 02/24/2023 7:16 PM EDT Oxygen Saturation 96% 02/24/2023 7:45 PM EDT Inhaled Oxygen Concentration - - Weight 76.7 kg (169 lb) 02/24/2023 7:16 PM EDT Height 177.8 cm (5' 10 ) 02/24/2023 7:16 PM EDT Body Mass Index 24.25 02/24/2023 7:16 PM EDT Plan of Treatment Not on file Medical Devices Not on file Insurance [facility] MEDICARE REPLACEMENT [facility] MEDICARE REPLACEMENT [facility]PLAC[facility]PLACEMENT [facility] MEDICARE REPLACEMENT [facility] MEDICARE REPLACEMENT [facility] MEDICARE REPLACEMENT [facility] MEDICARE [facility]PLACEMENT [facility] MEDICARE REPLACEMENT Care Teams Avionics Mechanic Relationship Specialty Start Date End Date Syd Stevens NP [facility] [place] [address] PCP - General Family Medicine 01/19/21 Additional Source Comments The information contained in this document represents components of the legal health record. It is not the complete legal health record.[facility]
--- OUTSIDE RECORDS SUMMARY | 2025-08-11 14:34 | XMS_ITS | Encounter Summary ---
Author Organization [facility] Address [address] [address] Phone Care Team Providers Care Recreation Center Director Name Role Phone Unknown, Unknown Primary Care Provider Syd Sanchez NP Primary Care Provider + Encounter Details Date Type Department Care Team (Latest Contact Info) Description 01/05/2021 Transcribe Orders Virtual Department [address] [place] [address] José Antonio Penn MD [address] [place] [address], [facility] [place] [address] [email or web address] Stage 3b chronic kidney disease (Primary Dx); Hypertension, unspecified type Social History Tobacco Use Types Packs/Day Years Used Date Smoking Tobacco: Never Assessed Sex and Gender Information Value Date Recorded Sex Assigned at Male 02/24/2023 7:15 PM EDT Legal Sex Male 9:52 PM EDT Gender Identity Male 02/24/2023 7:15 PM EDT Sexual Orientation Not on file documented as of this encounter Plan of Treatment Not on file documented as of this encounter Results * US Kidneys (01/19/2021 8:29 AM EST) Anatomical Region Laterality Modality Abdomen, Kidney Ultrasound 01/19/2021 9:46 AM EST Impressions 01/19/2021 9:49 AM EST Evidence of cortical thinning in the upper pole of the left kidney which could be postinflammatory or due to chronic infarct. Otherwise, normal study of the kidneys. \ Narrative 01/19/2021 9:49 AM EST HISTORY: Chronic kidney disease stage III, hypertension. COMPARISON: None. FINDINGS: Right kidney: The kidney is normal in size and echogenicity. No evidence of masses, calculi or pelvocaliectasis. The kidney measures 9.8 cm in the long axis. No significant cortical thinning. Left kidney: The kidney is echogenicity. No evidence of masses, calculi or pelvocaliectasis. There is evidence of cortical thinning in the upper pole. The kidney measures 8.7 cm in the long axis. Procedure Note Kodi Lima MD - 01/19/2021 HISTORY: Chronic kidney disease stage III, hypertension. COMPARISON: None. FINDINGS: Right kidney: The kidney is normal in size and echogenicity. No evidenceof masses, calculi or pelvocaliectasis. The kidney measures 9.8 cm in thelong axis. No significant cortical thinning. Left kidney: The kidney is echogenicity. No evidence of masses, calculior pelvocaliectasis. There is evidence of cortical thinning in the upperpole. The kidney measures 8.7 cm in the long axis. IMPRESSION: Evidence of cortical thinning in the upper pole of the left kidney whichcould be postinflammatory or due to chronic infarct. Otherwise, normalstudy of the kidneys. \ José Antonio Penn MD [facility] Final Re sult documented in this encounter Visit Diagnoses Diagnosis Stage 3b chronic kidney disease- Primary Hypertension, unspecified type Stage 3b chronic kidney disease Hypertension, unspecified type documented in this encounter Additional Health Concerns Infection Onset Date Last Indicated Resolved Time MRSA Comment:Infection Loaded by the Load Infection Utility 05/23/2013 05/23/2013 12/26/2022 1:[address] documented as of this encounter Care Teams Recreation Center Director Relationship Specialty Start Date End Date Unknown, Unknown, MD PCP - General 01/16/21 01/18/21 Syd Stevens NP [address] [facility] [place] [address] PCP - General Family Medicine 01/19/21 documented as of this encounter Additional Source Comments The information contained in this document represents components of the legal health record. It is not the complete legal health record.[facility]
== END 2025-08-11 14:21 | disposition home or self-care (01) ==
LOC: HO.HGI 13:24
PROVIDERS: Visit Provider Nurse Practitioner Family
DX: K86.89 Other specified diseases of pancreas (principal); R74.01 Elevation of levels of liver transaminase levels; Z86.0101 Personal history of adenomatous and serrated colon polyps
CPT/HCPCS: 99214; G2211

== ENCOUNTER → 2025-08-11 13:23 | Outpatient (BNVA) | payer MEDICARE, SELFPAY | PROVIDERS: Visit Provider Nurse Practitioner Family | DX: Z12.11 Encounter for screening for malignant neoplasm of colon (principal); K86.89 Other specified diseases of pancreas; R10.9 Unspecified abdominal pain; K76.0 Fatty (change of) liver, not elsewhere classified; R74.01 Elevation of levels of liver transaminase levels; Z80.0 Family history of malignant neoplasm of digestive organs | CPT/HCPCS: 99212 ==

== ENCOUNTER 2025-08-16 15:42 | Outpatient (REF) | payer MEDICARE, SELFPAY ==
--- OUTSIDE RECORDS SUMMARY | 2025-08-16 18:05 | XMS_ITS | Clinical Summary ---
Author Organization [facility] Address [address] [place] [address] Phone Care Team Providers Care Ict Programmer Name Role Phone Syd Stevens NP Primary [...] file Medical Devices Not on file Insurance [facility] MEDICARE REPLACEMENT [facility] MEDICARE REPLACEMENT [facility] MEDICARE REPLACEMENT [facility] MEDICARE REPLACEMENT [facility] MEDICARE [facility]PLACEMENT [facility] MEDICARE REPLACEMENT [facility] MEDICARE REPLACEMENT [facility] MEDICARE REPLACEMENT [facility] MEDICARE REPLACEMENT Care Teams Ict Programmer Relationship Specialty Start Date End Date Syd Stevens NP [facility] [place] [address] PCP - General Family Medicine 01/19/21 Additional Source Comments The information contained in this document represents components of the legal health record. It is not the complete legal health record.[facility]
--- OUTSIDE RECORDS SUMMARY | 2025-08-16 18:05 | XMS_ITS | Clinical Summary ---
Author Organization [facility], Address [address] [place] [address] [place] [address] Phone Care Team Providers Care Child Care Coordinator Name Role Phone Syd Stevens NP Primary Care Provider Allergies Active Allergy Reactions Criticality Noted Date [...] patient's age to complete this topic Insurance [facility] Care Teams Child Care Coordinator Relationship Specialty Start Date End Date Syd Stevens NP [address] [place] [address] PCP - General Nurse Practitioner 11/24/20
--- OUTSIDE RECORDS SUMMARY | 2025-08-16 18:05 | XMS_ITS | Encounter Summary ---
Author Organization [facility] Address [address] [address] Phone Care Team Providers Care Welder Fitter Name Role Phone Unknown, Unknown Primary Care Provider Syd Sanchez NP Primary Care Provider + Encounter Details Date Type Department Care Team (Latest Contact Info) Description 01/05/2021 Transcribe Orders Virtual Department [address] [place] [address] José Antonio Penn MD [address] [place] [address], [place] [address] [email or web address] Stage 3b chronic kidney disease (Primary [...] the kidneys. \ José Antonio Penn MD [facility] Final Re sult documented in [...] documented as of this encounter Care Teams Welder Fitter Relationship Specialty Start Date End Date Unknown, Unknown, MD PCP - General 01/16/21 01/18/21 Syd Stevens NP [address] [facility] [place] [address] PCP - General Family Medicine 01/19/21 documented as of this encounter Additional Source Comments The information contained in this document represents components of the legal health record. It is not the complete legal health record.[facility]
[2025-08-16 18:20] LABS: Lipase 35 U/L (8-78)
[2025-08-23 12:28] LABS: FIB-ALT 19 U/L (9-46); FIB-Alpha-2-Macroglobulin 209 mg/dL (106-279); FIB-Apolipoprotein A1 196 mg/dL (94-176); FIB-GGT 58 U/L (3-70); FIB-Haptoglobin 132 mg/dL (43-212); FIB-Total Bilirubin 0.3 mg/dL (0.2-1.2); Liver Fibrosis Score 0.20; Liver Fibrosis Stage F0; Nec Inflam Act Grade A0; Nec Inflam Act Score 0.06
== END 2025-08-16 15:43 | disposition home or self-care (01) ==
LOC: HO.LAB 15:42
PROVIDERS: PCP Nurse Practitioner Family; Visit Provider Nurse Practitioner Family
DX: K76.0 Fatty (change of) liver, not elsewhere classified (principal); K86.89 Other specified diseases of pancreas; R10.9 Unspecified abdominal pain
CPT/HCPCS: 81596; 83690; 86301

== ENCOUNTER 2025-08-24 12:16 | Outpatient (REF) | payer MEDICARE, SELFPAY ==
--- OUTSIDE RECORDS SUMMARY | 2025-08-24 14:59 | XMS_ITS | Encounter Summary ---
Author Organization [facility] Address [address] [address] Phone Care Team Providers Care Needle Control Cheniller Name Role Phone Unknown, Unknown Primary Care Provider Syd Sanchez NP Primary Care Provider + Encounter Details Date Type Department Care Team (Latest Contact Info) Description 01/05/2021 Transcribe Orders Virtual Department [address] [place] [address] José Antonio Penn MD [address] [place] [address], [facility] [address] [email or web address] Stage 3b chronic kidney disease (Primary [...] the kidneys. \ José Antonio Penn MD [facility] Final Re sult documented in [...] documented as of this encounter Care Teams Needle Control Cheniller Relationship Specialty Start Date End Date Unknown, Unknown, MD PCP - General 01/16/21 01/18/21 Syd Stevens NP [address] [facility] [place] [address] PCP - General Family Medicine 01/19/21 documented as of this encounter Additional Source Comments The information contained in this document represents components of the legal health record. It is not the complete legal health record.[facility]
--- OUTSIDE RECORDS SUMMARY | 2025-08-24 14:59 | XMS_ITS | Clinical Summary ---
Author Organization [facility], Address [address] [place] [address] [place] [address] Phone Care Team Providers Care Retail Tire Sales Manager Name Role Phone Syd Stevens NP Primary Care Provider [phone] Allergies Active Allergy Reactions Criticality Noted Date [...] patient's age to complete this topic Insurance [facility] Care Teams Retail Tire Sales Manager Relationship Specialty Start Date End Date Syd Stevens NP [address] [place] [address] PCP - General Nurse Practitioner 11/24/20
--- OUTSIDE RECORDS SUMMARY | 2025-08-24 14:59 | XMS_ITS | Clinical Summary ---
Author Organization [facility] Address [address] [place] [phone] Phone Care Team Providers Care Tourist Home Keeper Name Role Phone Syd Stevens NP Primary [...] file Medical Devices Not on file Insurance [facility] MEDICARE REPLACEMENT [facility] MEDICARE [facility]PLACEMENT [facility] MEDICARE REPLACEMENT [facility] MEDICARE REPLACEMENT [facility] MEDICARE REPLACEMENT [facility] MEDICARE REPLACEMENT [facility] MEDICARE [facility]PLACEMENT [facility] MEDICARE [facility]PLACEMENT [facility] MEDICARE REPLACEMENT Care Teams Tourist Home Keeper Relationship Specialty Start Date End Date Syd Stevens NP [facility] [address] PCP - General Family Medicine 01/19/21 Additional Source Comments The information contained in this document represents components of the legal health record. It is not the complete legal health record.[facility]
== END 2025-08-24 12:17 | disposition home or self-care (01) ==
LOC: HO.LNP 12:16
PROVIDERS: Visit Provider Nurse Practitioner Family
DX: R10.9 Unspecified abdominal pain (principal)
CPT/HCPCS: 82656

== ENCOUNTER 2025-09-27 11:00 | Outpatient (REF) | payer MEDICARE, SELFPAY | END 2025-09-27 11:01 | disposition home or self-care (01) | LOC: HO.MRI 11:00 | PROVIDERS: PCP Nurse Practitioner Family; Visit Provider Nurse Practitioner Family | DX: Z13.89 Encounter for screening for other disorder (principal) ==